=== PATIENT | female | born 1960 | race Hispanic/Latino ===

== ENCOUNTER 2016-10-04 04:59 | Observation (INO) | payer MEDICARE, OTHER ==
[2016-10-04 05:15] VITALS: TEMP 98.1; BMI 36.7
[2016-10-04] MEDS ORDERED: Sodium Chloride 0.9% 1,000 ML IV STA ×2 (05:28)
--- NOTE | 2016-10-04 05:40 | ED PDOC ---
Arrival/HPI - General Historian: Patient - History of Present Illness Time/Duration: 4-6 hours Symptom Onset: Sudden Symptom Course: Unchanged Quality: Other (n/a) Activities at Onset: Other (after eating.) Context: Home <SanamMadyson chow - Last Filed: 10/04/16 06:23> <Corinna Barroso - Last Filed: 10/04/16 06:37> <Robbie Bazzi - Last Filed: 10/04/16 11:15> - General Chief Complaint: GI Problem Time Seen by Provider: 10/04/16 05:11 - History of Present Illness Narrative History of Present Illness (Text): 10/04/16 05:40 Patient is a 56 y/o with extensive cardiac history including CABG, aortic valve replacement, s/p ICD, DM and htn, active tobacco use presenting with nausea and burning sensation in the lower aspect of the abdomen. Patient states the symptoms started yesterday around 6 pm right after eating a home made cheese burger. The entire family ate the food, she was the only one with the symptom. Patient states she took tums and 3 month old zofran with no relief. Patient denies vomiting, denies diarrhea. Denies abdominal pain, states the lower quadrant of the abdomen feels like a burning sensation, no pain. Denies cp or sob. States she has been coughing for weeks now, with whitish sputum. Patient denies fever, admits to chills. Admits to dizziness when she lies down. Denies illicit drug use, denies alcohol. (Madyson Farrell) Patient seen and evaluated with resident (AVR was aortic valve ring, not replacement) - here with heat sensation in abdomen with nausea. EKG is paced; CXR with no changes. Labs showing leukocytosis; awaiting CT a/p. Patient placed in ED Observation - case endorsed to Dr. Bazzi. (Corinna Barroso) Past Medical History - Provider Review Nursing Documentation Reviewed: Yes - Travel History Have you recently traveled outside [place] w/in the past 3 mons?: No - Infectious Disease Hx of Infectious Diseases: None - Tetanus Immunization Tetanus Immunization: Unknown - Cardiac Hx Congestive Heart Failure: Yes (04-08-13) Hx Hypertension: Yes Hx Mitral Valve Prolapse: Yes Hx Pacemaker: No - Pulmonary Hx Respiratory Disorders: Yes (PLEURAL EFFEUSION) - Neurological Hx Neurological Disorder: No - HEENT Hx HEENT Disorder: No - Renal Hx Renal Disorder: No (HYDRONEPHROSIS) - Endocrine/Metabolic Hx Endocrine Disorders: Yes Hx Diabetes Mellitus Type 1: Yes - Hematological/Oncological Hx Blood Disorders: No - Integumentary Hx Dermatological Disorder: No - Musculoskeletal/Rheumatological Hx Musculoskeletal Disorders: No Hx Falls: No - Gastrointestinal Hx Diverticulitis: Yes - Genitourinary/Gynecological Hx Genitourinary Disorders: Yes (C-SectionX1,TUBAL LIGATION) - Psychiatric Hx Anxiety: Yes Hx Depression: Yes Hx Substance Use: No - Surgical History Hx Coronary Artery Bypass Graft: Yes Hx Coronary Stent: Yes (1999) Hx Tubal Ligation: Yes - Anesthesia Hx Anesthesia: Yes Hx Anesthesia Reactions: No Hx Malignant Hyperthermia: No - Suicidal Assessment Feels Threatened In Home Enviroment: No <Madyson Farrell - Last Filed: 10/04/16 06:23> Family/Social History - Physician Review Nursing Documentation Reviewed: Yes Family/Social History: Hypertension, CAD/CT Smoking Status: Current Some Days Smoker Hx Alcohol Use: No Hx Substance Use: No Hx Substance Use Treatment: No <Madyson Farrell - Last Filed: 10/04/16 06:23> Allergies/Home Meds <Madyson Farrell - Last Filed: 10/04/16 06:23> <Corinna Barroso - Last Filed: 10/04/16 06:37> <Robbie Bazzi - Last Filed: 10/04/16 11:15> Allergies/Adverse Reactions: Allergies No Known Allergies Allergy (Verified 07/20/14 08:59) Home Medications: Home Meds Medication Instructions Recorded Confirmed Aspirin 81 mg PO DAILY 09/16/12 07/20/14 Pravastatin Sodium [Pravastatin] 20 mg PO QPM 09/16/12 07/20/14 Metoprolol Succinate [Toprol XL] 12.5 mg PO DAILY 11/30/12 07/20/14 Insulin Human NPH/Reg [HumuLIN 25 units SC BID 04/08/13 07/20/14 70/30 (NPH/Reg)] Cefuroxime [Ceftin] 250 mg PO BID 07/20/14 07/20/14 Furosemide [Lasix] 20 mg PO QPM 07/20/14 07/20/14 Loratadine 10 mg PO DAILY 07/20/14 07/20/14 Losartan [Cozaar] 25 mg PO DAILY 07/20/14 07/20/14 Venlafaxine HCl [Venlafaxine] 37.5 mg PO DAILY 07/20/14 07/20/14 Review of Systems - Review of Systems Constitutional: Normal. absent: Fevers Eyes: Normal ENT: Normal Respiratory: Cough. absent: SOB, Sputum, Wheezing Cardiovascular: Normal. absent: Chest Pain, Palpitations, Syncope Gastrointestinal: Nausea. absent: Abdominal Pain, Constipation, Diarrhea, Vomiting, Appetite Changes Genitourinary Female: Normal. absent: Dysuria, Frequency Musculoskeletal: Normal Skin: Normal Neurological: Dizziness (when lying down.). absent: Headache, Focal Weakness Endocrine: Normal Hemo/Lymphatic: Normal Psychiatric: Normal <Madyson Farrell - Last Filed: 10/04/16 06:23> Physical Exam Temperature: Afebrile Blood Pressure: Normal Pulse: Regular Respiratory Rate: Normal Appearance: Positive for: Non-Toxic, Comfortable, Ill-Appearing Pain Distress: None Mental Status: Positive for: Alert and Oriented X 3 - Systems Exam Head: Present: Atraumatic, Normocephalic Pupils: Present: PERRL Extroacular Muscles: Present: EOMI Conjunctiva: Present: Normal Mouth: Present: Dry Neck: Present: Normal Range of Motion. No: JVD Respiratory/Chest: Present: Clear to Auscultation, Good Air Exchange. No: Respiratory Distress, Accessory Muscle Use, Wheezes, Rales, Rhonchi Cardiovascular: Present: Regular Rate and Rhythm, Normal S1, S2. No: Murmurs, Tachycardic, Bradycardic, Rub Abdomen: Present: Normal Bowel Sounds. No: Tenderness, Distention, Rebound, Guarding Back: Present: Normal Inspection Upper Extremity: Present: Normal Inspection. No: Cyanosis, Edema Lower Extremity: Present: Normal Inspection. No: Edema Neurological: Present: GCS=15, CN II-XII Intact, Speech Normal Skin: Present: Warm, Dry, Normal Color. No: Rashes Psychiatric: Present: Alert, Oriented x 3, Normal Insight, Normal Concentration <Madyson Farrell - Last Filed: 10/04/16 06:23> Medical Decision Making - EKG Interpretation Interpreted by ED Physician: Yes (Ventricular pacemaker, no acute ST/ T wave changes.) Type: 12 lead EKG <Madyson Farrell - Last Filed: 10/04/16 06:23> <Corinna Barroso - Last Filed: 10/04/16 06:37> - Lab Interpretations I have reviewed the lab results: Yes <Robbie Bazzi - Last Filed: 10/04/16 11:15> ED Course and Treatment: 10/04/16 05:57 Patient is a 56 y/o with extensive PMH presenting with nausea, burning sensation in the lower abdominal quadrant, and dizziness. Food poisoning versus gastritis, uti versus pancreatitis. r/o CAD, Plan: - CBC, CMP, LIPASE - EKG, chest x-ray - pro bnp - cardiac enzymes - UA - Pepcid, zofran, and NS bolus. - reevaluate and dispo. - Discussed with Dr Barroso. 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 requested admission for possible specialist eval and possible anticoagulation. pt refuses. 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 advises she is able to return to er with any worsening symptoms or concerns. understands risks of possible worsening, embolization. (Robbie Bazzi) - Lab Interpretations Lab Results: 10/04/16 05:40 10/04/16 05:40 Lab Results 10/04/16 05:40: Urine Color Yellow, Urine Appearance Sl cloudy, Urine pH 6.0, Ur Specific [place] 1.020, Urine Protein 100 H, Urine Glucose (UA) 100 H, Urine Ketones Negative, Urine Blood Moderate H, Urine Nitrate Negative, Urine Bilirubin Negative, Urine Urobilinogen 0.2, Ur Leukocyte Esterase Negative, Urine RBC 1 - 3, Urine WBC 0 - 2, Ur Epithelial Cells 1 - 3 10/04/16 05:40: WBC 12.5 H, RBC 4.81, Hgb 14.4, Hct 42.0, MCV 87.3, MCH 29.9, MCHC 34.3, RDW 13.0, Plt Count 255, MPV 10.4, Gran % 74.5 H, Lymph % (Auto) 19.8 L, [place] % (Auto) 5.0, Eos % (Auto) 0.4 L, Baso % (Auto) 0.3, Gran # 9.31 H , Lymph # 2.5, [place] # 0.6, Eos # 0.1, Baso # 0.04 10/04/16 05:40: Sodium 138, Potassium 4.4, Chloride 99, Carbon Dioxide 31, Anion Gap 12, BUN 22 H, Creatinine 0.9, Est GFR ( Amer) > 60, Est GFR ( Non-Af Amer) > 60, Random Glucose 220 H, Calcium 11.4 H, Total Bilirubin 0.4, AST 24, ALT 33, Alkaline Phosphatase 113, Lactate Dehydrogenase 609, Total Creatine Kinase 61, Troponin I 0.02, NT-Pro-B Natriuret Pep 831 H, Total Protein 7.2, Albumin 4.0, Globulin 3.3, Albumin/Globulin Ratio 1.2, Lipase 71 - RAD Interpretation Radiology Orders: 10/04/16 05:22 CHEST PORTABLE [RAD] Stat 10/04/16 06:07 ABD PELVIS PO & IV CONTRAST [CT] Stat - Medication Orders Current Medication Orders: Discontinued Medications Famotidine (Pepcid) 20 mg IVP STAT STA Stop: 10/04/16 05:29 Last Admin: 10/04/16 05:52 Dose: 20 mg Sodium Chloride (Sodium Chloride 0.9%) 1,000 mls @ 125 mls/hr IV .Q8H STA Stop: 10/04/16 13:27 Last Admin: 10/04/16 05:52 Dose: 125 mls/hr Iohexol (Omnipaque 240 (50 Ml)) Confirm Administered Dose 50 ml .ROUTE .STK-MED ONE Stop: 10/04/16 06:20 Last Admin: 10/04/16 08:52 Dose: 50 ml Iohexol (Omnipaque 350 100 Ml) Confirm Administered Dose 350 mg .ROUTE .STK-MED ONE Stop: 10/04/16 07:29 Meclizine HCl (Antivert) 12.5 mg PO STAT STA Stop: 10/04/16 05:33 Last Admin: 10/04/16 05:52 Dose: 12.5 mg Ondansetron HCl (Zofran Inj) 4 mg IVP STAT STA Stop: 10/04/16 05:29 Last Admin: 10/04/16 05:52 Dose: 4 mg Ondansetron HCl (Zofran Inj) 4 mg IVP ONCE ONE Stop: 10/04/16 07:16 Last Admin: 10/04/16 07:21 Dose: 4 mg Promethazine HCl (Phenergan Inj) 12.5 mg IVPB STAT STA Stop: 10/04/16 06:13 Last Admin: 10/04/16 06:42 Dose: 12.5 mg ED OBSERVATION <Madyson Farrell - Last Filed: 10/04/16 06:23> Date of observation admission: 10/04/16 Time of observation admission: 04:55 <Corinna Barroso - Last Filed: 10/04/16 06:37> Discharge: Yes <Robbie Bazzi - Last Filed: 10/04/16 11:15> - Observation admission statement Patient is being placed in observation because:: abdominal discomfort and persistent nausea (Corinna Barroso) - Goals of Observation Goals of observation are:: To rule out grave pathology, determine diagnosis and disposition, and improve symptoms. (Corinna Barroso) - Progress Note Progress Note: 10/04/16 06:15 Patient reports improvement in nausea but it is still there. Labs reveal WBC of 12.5K; will obtain CT a/p with po/iv contrast. (Corinna Barroso) 10/04/16 07:00 Case signed out to me from overnight by Dr. Barroso, pending imaging, reevaluation and disposition. 10/04/16 08:59 Abdomen/Pelvis CT: Creator : Juan Lyons MD COMPARISON: None. FINDINGS: LOWER THORAX: Unremarkable. LIVER: Unremarkable. No gross lesion or ductal dilatation. GALLBLADDER AND BILE DUCTS: Unremarkable. PANCREAS: Unremarkable. No gross lesion or ductal dilatation. SPLEEN: Unremarkable. ADRENALS: Unremarkable. No mass. KIDNEYS AND URETERS: Unremarkable. No hydronephrosis. No solid mass. VASCULATURE: Atherosclerotic changes of the aorta with irregular mural thrombus in the aorta.. No aortic aneurysm. BOWEL: Mild colonic diverticulosis.. No obstruction. No gross mural thickening. APPENDIX: Normal appendix. PERITONEUM: Unremarkable. No free fluid. No free air. LYMPH NODES: Unremarkable. No enlarged lymph nodes. BLADDER: Unremarkable. REPRODUCTIVE: Unremarkable. BONES: No acute fracture. OTHER FINDINGS: None. IMPRESSION: Mild colonic diverticulosis.Atherosclerotic changes of the aorta with irregular mural thrombus in the aorta.. No aortic aneurysm. 10/04/16 09:04 On re-evaluation, the patient says she feels better. Patient was offered admission for mural thrombus and persistent nausea but patient is refusing. She states she wants to go home. Leaving Against Medical Advice (AMA): The patient is choosing to leave against medical advice. I have personally explained to the patient that choosing to do so may result in permanent bodily harm or . I have discussed at great length that without further evaluation and monitoring there may be unforeseen circumstances and/or deterioration causing permanent bodily harm or as a result of their choice. The patient is alert, oriented, and shows the mental capacity to make clear decisions regarding the patients health care at this time. The patient continues to wish to leave against medical advice. The patient has been advised that they should return to the emergency room immediately if they change their mind at any time, or if their condition begins to change or worsen in any way. (Robbie Bazzi) <Madyson Farrell - Last Filed: 10/04/16 06:23> <Corinna Barroso - Last Filed: 10/04/16 06:37> - Scribe Statement The provider has reviewed the documentation as recorded by the Scribe <Robbie Bazzi - Last Filed: 10/04/16 11:15> - Scribe Statement Raffi Witt Provider Scribe Attestation: All medical record entries made by the Scribe were at my direction and personally dictated by me. I have reviewed the chart and agree that the record accurately reflects my personal performance of the history, physical exam, medical decision making, and the department course for this patient. I have also personally directed, reviewed, and agree with the discharge instructions and disposition. (Robbie Bazzi) Disposition/Present on Arrival - Present on Arrival Any Indicators Present on Arrival: Yes History of DVT/PE: No History of Uncontrolled Diabetes: Yes Urinary Catheter: No History of Decub. Ulcer: No History Surgical Site Infection Following: None - Disposition Have Diagnosis and Disposition been Completed?: No Disposition Time: 04:55 <Madyson Farrell - Last Filed: 10/04/16 06:23> <Corinna Barroso - Last Filed: 10/04/16 06:37> - Present on Arrival Any Indicators Present on Arrival: No History of DVT/PE: No History of Uncontrolled Diabetes: No Urinary Catheter: No History of Decub. Ulcer: No - Disposition Have Diagnosis and Disposition been Completed?: Yes Disposition Time: 04:55 <Robbie Bazzi - Last Filed: 10/04/16 11:15> - Disposition Diagnosis: Abdominal discomfort, Nausea Disposition: HOME/ ROUTINE Condition: STABLE
[2016-10-04 05:48] LABS: ADD MANUAL DIFF? NO
[2016-10-04 05:59] LABS: BASO # 0.04 K/mm3 (0.0-2.0); BASO % 0.3 % (0.0-3.0); EOS # 0.1 (0.0-0.7); EOS % 0.4 % (1.5-5.0); GRAN # 9.31 (1.4-6.5); GRAN % 74.5 % (50.0-68.0); LYMPH # 2.5 (1.2-3.4); LYMPH % 19.8 % (22.0-35.0); MEAN CELL VOLUME 87.3 fL (80.0-105.0); MEAN CORPUSCULAR HEMOGLOBIN 29.9 pg (25.0-35.0); MEAN CORPUSCULAR HGB CONC 34.3 g/dl (31.0-37.0); MEAN PLATELET VOLUME 10.4 fl (7.0-11.0); MONO # 0.6 (0.1-0.6); PLATELET COUNT 255 10^3/uL (120.0-450.0); WHITE BLOOD COUNT 12.5 10^3/ul (4.5-11.0)
[2016-10-04 06:00] LABS: ALB/GLOB RATIO 1.2 (1.1-1.8); ALKALINE PHOSPHATASE 113 U/L (38-133); ALT/SGPT 33 U/L (7-56); AST/SGOT 24 U/L (15-39); BILIRUBIN,TOTAL 0.4 mg/dL (0.2-1.3); BLOOD UREA NITROGEN 22 mg/dL (7-21); CALCIUM 11.4 mg/dL (8.4-10.5); CARBON DIOXIDE 31 mmol/L (21-33); CHLORIDE 99 mmol/L (98-107); GFR AFRICAN-AMERICAN > 60; GLUCOSE,RANDOM 220 mg/dL (70-110); LIPASE 71 U/L (23-300); POTASSIUM 4.4 mmol/L (3.6-5.0); SODIUM 138 mmol/L (132-148); TOTAL PROTEIN 7.2 g/dL (5.8-8.3); URINE BILIRUBIN NEGATIVE (NEGATIVE); URINE BLOOD MODERATE (NEGATIVE); URINE GLUCOSE (UA) 100 mg/dL (NEGATIVE); URINE KETONE NEGATIVE (NEGATIVE); URINE LEUKOCYTE ESTERASE NEGATIVE Leu/uL (NEGATIVE); URINE PROTEIN 100 mg/dL (<30 mg/dL); URINE UROBILINOGEN 0.2 E.U./dL (<1 E.U./dL)
[2016-10-04 06:10] LABS: URINE APPEARANCE SL CLOUDY (CLEAR); URINE COLOR YELLOW (YELLOW)
[2016-10-04 06:11] LABS: TROPONIN I 0.02 ng/mL
[2016-10-04 06:12] LABS: URINE WBC 0 - 2 /hpf (0-6)
[2016-10-04] MEDS ORDERED: Iohexol 240 (50 ml) ONE (06:19)
[2016-10-04] MEDS ORDERED: Iohexol 350 MG/100 ML VIAL ONE (07:28)
--- NOTE | 2016-10-04 08:55 | CT ---
PROCEDURE: CT Abdomen and Pelvis with contrast HISTORY: abd pain, nausea COMPARISON: None. TECHNIQUE: Contrast dose: 100 cc of Omnipaque 300 Radiation dose: Total exam DLP = 1201 mGy-cm. This CT exam was performed using one or more of the following dose reduction techniques: Automated exposure control, adjustment of the mA and/or kV according to patient size, and/or use of iterative reconstruction technique. FINDINGS: LOWER THORAX: Unremarkable. LIVER: Unremarkable. No gross lesion or ductal dilatation. GALLBLADDER AND BILE DUCTS: Unremarkable. PANCREAS: Unremarkable. No gross lesion or ductal dilatation. SPLEEN: Unremarkable. ADRENALS: Unremarkable. No mass. KIDNEYS AND URETERS: Unremarkable. No hydronephrosis. No solid mass. VASCULATURE: Atherosclerotic changes of the aorta with irregular mural thrombus in the aorta.. No aortic aneurysm. BOWEL: Mild colonic diverticulosis.. No obstruction. No gross mural thickening. APPENDIX: Normal appendix. PERITONEUM: Unremarkable. No free fluid. No free air. LYMPH NODES: Unremarkable. No enlarged lymph nodes. BLADDER: Unremarkable. REPRODUCTIVE: Unremarkable. BONES: No acute fracture. OTHER FINDINGS: None. IMPRESSION: Mild colonic diverticulosis.Atherosclerotic changes of the aorta with irregular mural thrombus in the aorta.. No aortic aneurysm.
--- NOTE | 2016-10-04 09:10 | RAD ---
HISTORY: nausea COMPARISON: 07/20/2014 FINDINGS: LUNGS: No active pulmonary disease. PLEURA: No significant pleural effusion identified, no pneumothorax apparent. CARDIOVASCULAR: Normal. OSSEOUS STRUCTURES: Sternal wires VISUALIZED UPPER ABDOMEN: Normal. OTHER FINDINGS: Dual lead pacemaker IMPRESSION: No active disease.
[2016-10-04 10:02] VITALS: BP 147/68; PULSE 84; RESP 17; O2SAT 96
--- NOTE | 2016-10-05 16:15 | CARD ---
APPROVED REPORT EKG Measurement Heart [id number] <Conclusion> [place] sensed, ventricular paced rhythm
== END 2016-10-04 09:03 | disposition home or self-care (01) ==
LOC: ED 04:59 → EROBSV 06:39
PROVIDERS: ADMIT Emergency Medicine; ATTEND Emergency Medicine
DX: R10.9 Unspecified abdominal pain (principal); R11.0 Nausea; I10 Essential (primary) hypertension; Z95.1 Presence of aortocoronary bypass graft; Z95.2 Presence of prosthetic heart valve; Z72.0 Tobacco use
CPT/HCPCS: 71010; 74177; 80053; 81001; 82550; 83615; 83690; 83880; 84484; 85025; 93005; 96374; 96375; 99285; G0378; J2405; J2550; J7040; Q9966; Q9967

== ENCOUNTER 2017-01-17 03:55 | Inpatient (IN) | payer MEDICARE, OTHER ==
[2017-01-17 04:03] VITALS: BMI 35.0
[2017-01-17] MEDS ORDERED: Albuterol-Ipratrop 3 mg / 0.5 (3 ml) UD ONE (04:20)
--- NOTE | 2017-01-17 04:33 | ED PDOC ---
Arrival/HPI - History of Present Illness Time/Duration: 1-3 hours Symptom Onset: Sudden Symptom Course: Unchanged Quality: Tightness Severity Level: Moderate Activities at Onset: Rest Context: Home - General Chief Complaint: Shortness Of Breath Time Seen by Provider: 01/17/17 04:16 - History of Present Illness Narrative History of Present Illness (Text): 01/17/17 04:30 56yo F PMH VA s/p CABG and AICD, DM2 (on insulin) who presents with shortness of breath that started earlier tonight after "over-dosing on albuterol." pt states that she began having cold-symptoms (post-nasal drip) on Friday and when she wasn't improving went to Dr. Andrew who prescribed her prednisone, levaquin and albuterol. pt states that the levaquin and prednisone gave her n/v and so she stopped taking them. Pt wasn't feeling better by so she went to [facility]. Prior to presentation, pt states that she took two large inhaled breaths of albuterol and then states that her lungs closed up and she became short of breath. pt states she had similar episodes before when she used to get panic attacks but denies any recent ones. Per daughter, there is a sick child at home (URI) and everybody at home is sick with a cold. Pt is also a smoker and states she smokes 1/[address] Andrew. (JAYDEN HANCOCK) Past Medical History - Provider Review Nursing Documentation Reviewed: Yes - Past History Past History: No Previous - Infectious Disease Hx of Infectious Diseases: None - Tetanus Immunization Tetanus Immunization: Unknown - Past Medical History Past Medical History: Non-Contributing - Cardiac Hx Congestive Heart Failure: Yes (04-08-13) Hx Hypertension: Yes Hx Mitral Valve Prolapse: Yes Hx Pacemaker: Yes (2014) - Pulmonary Hx Asthma: Yes Hx Bronchitis: Yes - Neurological Hx Neurological Disorder: No - HEENT Hx HEENT Disorder: No - Renal Hx Renal Disorder: No (HYDRONEPHROSIS) - Endocrine/Metabolic Hx Endocrine Disorders: Yes Hx Diabetes Mellitus Type 2: Yes - Hematological/Oncological Hx Blood Disorders: No - Integumentary Hx Dermatological Disorder: No - Musculoskeletal/Rheumatological Hx Musculoskeletal Disorders: No Hx Falls: No - Gastrointestinal Hx Diverticulitis: Yes - Genitourinary/Gynecological Hx Genitourinary Disorders: Yes (C-SectionX1,TUBAL LIGATION) - Psychiatric Hx Anxiety: Yes Hx Depression: Yes Hx Substance Use: No - Surgical History Hx Coronary Artery Bypass Graft: Yes (x5 2012) Hx Coronary Stent: Yes (1999) - Anesthesia Hx Anesthesia: Yes Hx Anesthesia Reactions: No Hx Malignant Hyperthermia: No - Suicidal Assessment Feels Threatened In Home Enviroment: No Family/Social History - Physician Review Nursing Documentation Reviewed: Yes Family/Social History: No Known Family HX Smoking Status: Heavy Smoker > 10 Cigarettes Daily Hx Alcohol Use: No Hx Substance Use: No Hx Substance Use Treatment: No Allergies/Home Meds Allergies/Adverse Reactions: Allergies losartan Adverse Reaction (Verified 01/17/17 04:09) ITCHING Home Medications: Home Meds Medication Instructions Recorded Confirmed Metoprolol Succinate [Toprol XL] 12.5 mg PO DAILY 11/30/12 01/17/17 Insulin Human NPH/Reg [HumuLIN 25 units SC TID 04/08/13 01/17/17 70/30 (NPH/Reg)] Aspirin [Aspirin Chewable] 81 mg PO DAILY 01/16/17 01/17/17 Atorvastatin [Lipitor] 80 mg PO DAILY 01/16/17 01/17/17 Cholecalciferol [Vitamin D 1000 IU] 1 tab PO DAILY 01/16/17 01/17/17 Clopidogrel [Plavix] 75 mg PO DAILY 01/16/17 01/17/17 Levofloxacin [Levaquin] 500 mg PO DAILY 01/17/17 01/17/17 Methylprednisolone [Medrol Dosepak] 4 mg PO DAILY 01/17/17 01/17/17 Promethazine DM [Phenergan DM 5 ml PO TID 01/17/17 01/17/17 Syrup] Review of Systems - Physician Review All systems were reviewed & negative as marked: Yes - Review of Systems Constitutional: Normal. absent: Fevers, Night Sweats ENT: Normal, Other (post-nasal drip). absent: Sore Throat, Rhinorrhea, Sinus Congestion Respiratory: SOB, Cough, Wheezing Cardiovascular: absent: Chest Pain, Palpitations, Edema, Calf Pain Gastrointestinal: absent: Abdominal Pain Neurological: absent: Headache, Dizziness Physical Exam Vital Signs Reviewed: Yes Appearance: Positive for: Non-Toxic Pain Distress: None Mental Status: Positive for: Alert and Oriented X 3 - Systems Exam Head: Present: Atraumatic, Normocephalic Pupils: Present: PERRL Extroacular Muscles: Present: EOMI Conjunctiva: Present: Normal Mouth: Present: Moist Mucous Membranes. No: Drooling Pharnyx: Present: Normal. No: ERYTHEMA, EXUDATE, TONSILS ENLARGED, Muffled/ Hoarse Voice Nose (External): Present: Atraumatic Nose (Internal): Present: No Active Bleeding, Moist Neck: Present: Normal Range of Motion. No: Lymphadenopathy Respiratory/Chest: Present: Wheezes, Tachypneic Cardiovascular: Present: Regular Rate and Rhythm, Normal S1, S2 Abdomen: Present: Normal Bowel Sounds. No: Tenderness, Distention Upper Extremity: Present: Normal Inspection, Normal ROM Lower Extremity: Present: Normal Inspection. No: Edema Neurological: Present: CN II-XII Intact, Speech Normal Skin: Present: Warm, Dry Psychiatric: Present: Alert, Oriented x 3 Vital Signs Temp Pulse Resp BP Pulse Ox 01/17/17 06:08 95 H 19 145/66 97 01/17/17 04:22 98.0 F 01/17/17 04:15 27 H 99 01/17/17 04:03 90 24 157/81 H 97 01/17/17 04:02 90 25 H 98 Medical Decision Making ED Course and Treatment: Patient seen and examined with resident. Came up with treatment and disposition plan with resident. (Jason Guadalupe) 01/17/17 04:59 Impression: 56yo F presenting with shortness of breath likely 2/2 bronchitis complicated by reactive airway disease Plan: - Reassess and disposition - CXR - EKG - Labs - Duonebs - Solu-medrol - Rocephin - Zosyn - magnesium Progress Notes: EKG: Ordered, reviewed, and independently interpreted the EKG. Rate : 84 BPM Rhythm : NSR with occasional PVC's Interpretation : Septal infarct, unchanged from prior exam Comparison : No previous EKG for comparison 01/17/17 06:14 Lasix and nitro ordered for pt, wheezing improving Dr. Andrew was contacted and she accepts the pt onto her service 01/17/17 06:16 01/17/17 06:20 Pt re-evaluated and is breathing better with less cough and less wheezing. continue with outlined management (KARISSA,JAYDEN) - Lab Interpretations Lab Results: 01/17/17 04:20 01/17/17 04:20 Lab Results 01/17/17 04:20: Sodium 137, Potassium 3.8, Chloride 95 L, Carbon Dioxide 32, Anion Gap 14, BUN 26 H, Creatinine 0.9, Est GFR ( Amer) > 60, Est GFR ( Non-Af Amer) > 60, Random Glucose 174 H, Calcium 8.7, Total Bilirubin 0.4, AST 31, ALT 27, Alkaline Phosphatase 118, Total Creatine Kinase 108, Troponin I 0.03 D, NT-Pro-B Natriuret Pep 1120 H, Total Protein 7.1, Albumin 4.0, Globulin 3.1, Albumin/Globulin Ratio 1.3 01/17/17 04:20: PT 10.9, INR 1.01, APTT 25.8 01/17/17 04:20: WBC 15.2 H D, RBC 4.62, Hgb 13.5, Hct 39.6, MCV 85.7, MCH 29.2, MCHC 34.1, RDW 12.9, Plt Count 259, MPV 10.4, Gran % 64.3, Lymph % (Auto) 25.5, [place] % (Auto) 9.1 H, Eos % (Auto) 0.9 L, Baso % (Auto) 0.2, Gran # 9.80 H, Lymph # 3.9 H, [place] # 1.4 H, Eos # 0.1, Baso # 0.03 - RAD Interpretation Radiology Orders: 01/17/17 04:42 CHEST ONE VIEW [RAD] Stat - Medication Orders Current Medication Orders: Guaifenesin (Robitussin) 100 mg PO Q4H PRN PRN Reason: Cough Last Admin: 01/17/17 05:45 Dose: 100 mg Nitroglycerin (Nitrostat Sl Tab) 0.3 mg SL Q5M CHELLY Stop: 01/17/17 06:26 Discontinued Medications Albuterol/Ipratropium (Duoneb 3 Mg/0.5 Mg (3 Ml) Ud) 3 ml IH STAT STA Stop: 01/17/17 04:55 Last Admin: 01/17/17 04:25 Dose: 3 ml Furosemide (Lasix) 40 mg IVP STAT STA Stop: 01/17/17 06:09 Magnesium Sulfate 2 gm/ Sodium (Chloride) 104 mls @ 102 mls/hr IVPB ONCE ONE Stop: 01/17/17 05:47 Last Admin: 01/17/17 05:05 Dose: 102 mls/hr eMAR Start Stop Document 01/17/17 05:05 RD (Rec: 01/17/17 05:06 RD [id number]) Intravenous Solution Start Date 01/17/17 Start Time 05:05 End Date 01/17/17 End time 06:05 Total Infusion Time 60 Ceftriaxone Sodium (Rocephin 1 Gram Ivpb) 1 gm in 100 mls @ 200 mls/hr IVPB STAT STA PRN Reason: Protocol Stop: 01/17/17 05:12 Piperacillin Sod/Tazobactam Sod (Zosyn 4.5 Gm In Ns 100ml) 4.5 gm in 100 mls @ 200 mls/hr IVPB STAT STA Stop: 01/17/17 05:24 Last Admin: 01/17/17 05:05 Dose: 200 mls/hr Comments: Verified administration of zosyn and mag sulfate with pharmacy. eMAR Start Stop Document 01/17/17 05:05 RD (Rec: 01/17/17 05:05 RD [id number]) Intravenous Solution Start Date 01/17/17 Start Time 05:05 End Date 01/17/17 End time 05:35 Total Infusion Time 30 Methylprednisolone (Solu-Medrol) 125 mg IVP STAT STA Stop: 01/17/17 04:55 Last Admin: 01/17/17 04:25 Dose: 125 mg IVP Administration Document 01/17/17 04:25 RD (Rec: 01/17/17 04:58 RD [id number]) Charges for Administration # of IVP Administrations 1 Oxymetazoline HCl (Afrin 0.05%) 0 ml NS STAT STA Stop: 01/17/17 05:36 Last Admin: 01/17/17 05:51 Dose: 4 spr Sodium Chloride ([place] Nasal [place]) 0 ml NS Q4H PRN PRN Reason: Nasal congestion Disposition/Present on Arrival - Present on Arrival Any Indicators Present on Arrival: No History of DVT/PE: No History of Uncontrolled Diabetes: No Urinary Catheter: No History of Decub. Ulcer: No History Surgical Site Infection Following: None - Disposition Have Diagnosis and Disposition been Completed?: Yes Disposition Time: 06:16 Patient Plan: Admission - Disposition Diagnosis: Bronchitis, Shortness of breath Disposition: HOSPITALIZED Patient Problems: Current Active Problems Problem Status Onset Bronchitis Acute Shortness of breath Acute Condition: STABLE Referrals: Ashish Andrew MD [Primary Care Provider] - Follow up with primary Forms: [employer] (Bulgarian)
[2017-01-17] MEDS ORDERED: Albuterol 0.083% Inhal Sol (2.5 mg/3 mL) UD IH STA (04:42)
[2017-01-17] MEDS ORDERED: cefTRIAXone 1 gm 1 GM/100 ML BAG IVPB STA (04:43)
[2017-01-17] MEDS ORDERED: Piperacillin/Tazobact 3.375 gm Inj IVPB ONE (04:43)
[2017-01-17] MEDS ORDERED: MethylPREDNISolone 40 mg Vial IVP STA (04:43)
[2017-01-17] MEDS ORDERED: Magnesium Sulfate 2 GM in Sodium Chloride 0.9% 100 ML IVPB ONE (04:46)
[2017-01-17] MEDS ORDERED: Albuterol-Ipratrop 3 mg / 0.5 (3 ml) UD IH STA (04:54)
[2017-01-17] MEDS ORDERED: Piperacill/Tazo 4.5gm in NS 100 ML IVPB STA (04:55)
[2017-01-17 05:15] LABS: BASO # 0.03 K/mm3 (0.0-2.0); BASO % 0.2 % (0.0-3.0); EOS # 0.1 (0.0-0.7); EOS % 0.9 % (1.5-5.0); GRAN # 9.8 (1.4-6.5); GRAN % 64.3 % (50.0-68.0); HEMATOCRIT 39.6 % (36.0-48.0); LYMPH # 3.9 (1.2-3.4); LYMPH % 25.5 % (22.0-35.0); MEAN CELL VOLUME 85.7 fl (80.0-105.0); MEAN CORPUSCULAR HEMOGLOBIN 29.2 pg (25.0-35.0); MEAN CORPUSCULAR HGB CONC 34.1 g/dl (31.0-37.0); MEAN PLATELET VOLUME 10.4 fl (7.0-11.0); MONO # 1.4 (0.1-0.6); MONO % 9.1 % (1.0-6.0); RED CELL DISTRIBUTION WIDTH 12.9 % (11.5-14.5); WHITE BLOOD COUNT 15.2 10^3/ul (4.5-11.0)
[2017-01-17 05:22] LABS: ALB/GLOB RATIO 1.3 (1.1-1.8); ALKALINE PHOSPHATASE 118 U/L (38-126); ALT/SGPT 27 U/L (7-56); AST/SGOT 31 U/L (14-36); BILIRUBIN,TOTAL 0.4 mg/dL (0.2-1.3); BLOOD UREA NITROGEN 26 mg/dL (7-21); CALCIUM 8.7 mg/dL (8.4-10.5); CARBON DIOXIDE 32 mmol/L (21-33); CHLORIDE 95 mmol/L (98-107); GFR AFRICAN-AMERICAN > 60; GLUCOSE,RANDOM 174 mg/dL (70-110); POTASSIUM 3.8 mmol/L (3.6-5.0); SODIUM 137 mmol/L (132-148); TOTAL PROTEIN 7.1 g/dL (5.8-8.3)
[2017-01-17 05:24] LABS: INR 1.01 (0.93-1.08); PARTIAL THROMBOPLASTIN TIME 25.8 Seconds (23.7-30.8)
[2017-01-17 05:34] LABS: TROPONIN I 0.03 ng/mL
[2017-01-17] MEDS ORDERED: Oxymetazoline 0.05% Nasal Spray (30 ml) NS STA (05:35)
[2017-01-17] MEDS: guaiFENesin 100 mg/5 ml Syrup UD PO PRN ×3 (05:45→21:25)
--- NOTE | 2017-01-17 08:12 | RAD ---
PROCEDURE: CHEST RADIOGRAPH, 1 VIEW HISTORY: Shortness of breath COMPARISON: 10/04/2016. FINDINGS: LUNGS: The lungs are well inflated and clear. PLEURA: No pneumothorax or pleural fluid seen. CARDIOVASCULAR: The heart is normal in size. Status post CABG. There is stable position of a left-sided AICD. OSSEOUS STRUCTURES: No significant abnormalities. VISUALIZED UPPER ABDOMEN: Normal. OTHER FINDINGS: None. IMPRESSION: No active pulmonary disease.
[2017-01-17] MEDS: Insulin Reg-HIGH-Coverage SC SCH ×4 (08:59→23:32)
[2017-01-17] MEDS: Azithromycin 500MG/NS 250ml 500 MG/250 ML BAG IVPB SCH (09:01)
[2017-01-17] MEDS: Metoprolol Succinate 25 mg XL Tab PO SCH (09:01)
[2017-01-17] MEDS: cefTRIAXone 1 gm 1 GM/100 ML BAG IVPB SCH (09:02)
--- NOTE | 2017-01-17 09:15 | CARD ---
APPROVED REPORT EKG Measurement Heart [id number] <Conclusion> V. Paced, A. Sensed rhythm One PVC No change
[2017-01-17] MEDS: Insulin Human NPH/Reg 70/30 Vial(3 ml) SC SCH ×2 (09:20→17:05)
[2017-01-17] MEDS: Fluticasone Nasal 50 mcg/Spray NS SCH (09:20)
[2017-01-17] MEDS: Promethazine DM 6.25 mg-15 mg/5 ml Syrup PO SCH ×3 (12:00→23:33)
[2017-01-17] MEDS ORDERED: Pneumococcal 23-Valent Vaccine IM ONE (13:28)
[2017-01-17] MEDS: Levalbuterol 0.63 MG/3 ML Inhal Soln UD IH SCH ×2 (13:30→19:50)
[2017-01-17] MEDS: MethylPREDNISolone 40 mg Vial IVP SCH ×2 (13:48→21:25)
[2017-01-18] MEDS: Levalbuterol 0.63 MG/3 ML Inhal Soln UD IH SCH ×4 (02:00→21:00)
--- NOTE | 2017-01-18 03:07 | HP ---
HISTORY OF PRESENT ILLNESS: The patient is 56 years old. She was seen earlier this week with cough, congestion, and wheezing. The patient is active smoker, so she was given Levaquin and Medrol Dosepak. She states she started to feel a little better, but then started to get worse. So, yesterday, she became increasingly short of breath, went to [facility], she was given nebulizer treatment with IV steroid with some relief and she was discharged. When she came home, she started to use her medication again and she developed acute shortness of breath again, so she came to emergency room for further evaluation. Denies any fever or chills. No history of hemoptysis. No hematemesis. No nausea or vomiting. No diarrhea. Does complain of generalized weakness. PAST MEDICAL HISTORY: She has significant past medical history of coronary artery disease, status post open heart surgery and valve replacement, insulin-dependent diabetes, hypertension, COPD, and anxiety disorder. ALLERGIES: SHE IS ALLERGIC TO [place]ART[place]. MEDICATIONS AT HOME: She is on promethazine, metoprolol 12.5 daily, Medrol Dosepak, Humulin 70/30, 25 units 3 times a day, Lasix 40 mg daily, Plavix 75 daily, Lipitor 80 mg daily, and aspirin 81 daily. SOCIAL HISTORY: She is , lives with her and 2 grown up daughter. REVIEW OF SYSTEMS: Significant for cough, congestion, and shortness of breath. PHYSICAL EXAMINATION: GENERAL: She is awake, alert, and communicative. VITAL SIGNS: She is afebrile, pulse 79, respirations 18, and blood pressure 143/60. HEART: S1 and S2 audible. LUNGS: Bilateral diffusely decreased breath sounds expiratory rhonchi. ABDOMEN: Soft and nontender. No rebound. No guarding. NEUROLOGIC: She is awake, alert, and communicative. LABORATORY DATA: WBC is 15, hemoglobin is 13, hematocrit is 39, and platelets 259. PT is 10.9 and INR is 1.01. Chemistry: Sodium 137, potassium 3.8, chloride 95, CO2 of 32, BUN 26, creatinine 0.9, and blood sugar of 302. LFTs are within normal limits. BNP is 1112. X-ray chest, no active pulmonary disease. She had MUGA scan done that shows large size inferolateral and lateral wall infarct with some joann-infarct ischemia and low normal left ventricular ejection fraction. ASSESSMENT: 1. Chronic obstructive pulmonary disease exacerbation. 2. Asthmatic bronchitis. 3. Coronary artery disease. 4. Hypertension. 5. Insulin-dependent diabetes. 6. Hyperlipidemia. PLAN: Currently, the patient is on aspirin 81 mg daily. She is getting Xopenex. She is getting nebulizer treatment. She is on Lasix. I will continue her on stains and Plavix. We will continue on antibiotics Zithromax and we will reevaluate the patient. Ashish Andrew MD
[2017-01-18 03:53] LABS: ALB/GLOB RATIO 1.3 (1.1-1.8); ALKALINE PHOSPHATASE 116 U/L (38-126); ALT/SGPT 43 U/L (7-56); AST/SGOT 33 U/L (14-36); BILIRUBIN,TOTAL 0.4 mg/dL (0.2-1.3); BLOOD UREA NITROGEN 30 mg/dL (7-21); CARBON DIOXIDE 32 mmol/L (21-33); CHLORIDE 96 mmol/L (98-107); GFR AFRICAN-AMERICAN > 60; MAGNESIUM 2.3 mg/dL (1.7-2.2); PHOSPHOROUS 3.6 mg/dL (2.5-4.5); POTASSIUM 5.5 mmol/L (3.6-5.0); SODIUM 135 mmol/L (132-148); TOTAL PROTEIN 6.8 g/dL (5.8-8.3)
[2017-01-18 04:04] LABS: TROPONIN I 0.03 ng/mL
[2017-01-18] MEDS ORDERED: Sod Polystyrene Sulf 15 gm/60 ml Oral Susp PO ONE (04:24)
[2017-01-18] MEDS ORDERED: Insulin Regular 1 UNITS/0.01 ML ML SC STA (04:31)
[2017-01-18 04:32] LABS: BASO # 0.01 K/mm3 (0.0-2.0); BASO % 0.1 % (0.0-3.0); GRAN # 13.11 (1.4-6.5); HEMATOCRIT 39.4 % (36.0-48.0); LYMPH # 1.7 (1.2-3.4); LYMPH % 11.2 % (22.0-35.0); MEAN CELL VOLUME 86.2 fl (80.0-105.0); MEAN CORPUSCULAR HEMOGLOBIN 29.3 pg (25.0-35.0); MEAN PLATELET VOLUME 10.4 fl (7.0-11.0); MONO # 0.7 (0.1-0.6); MONO % 4.7 % (1.0-6.0); RED CELL DISTRIBUTION WIDTH 12.9 % (11.5-14.5); WHITE BLOOD COUNT 15.6 10^3/ul (4.5-11.0)
[2017-01-18] MEDS: Promethazine DM 6.25 mg-15 mg/5 ml Syrup PO SCH ×2 (05:05→11:51)
[2017-01-18] MEDS: MethylPREDNISolone 40 mg Vial IVP SCH ×2 (05:06→21:45)
[2017-01-18] MEDS: Insulin Reg-HIGH-Coverage SC SCH ×3 (07:30→21:47)
--- NOTE | 2017-01-18 08:46 | CARD ---
APPROVED REPORT EKG Measurement Heart [id number] <Conclusion> V. Paced, A. Sensed rhythm No change
[2017-01-18] MEDS: cefTRIAXone 1 gm 1 GM/100 ML BAG IVPB SCH (09:23)
[2017-01-18] MEDS: Fluticasone Nasal 50 mcg/Spray NS SCH (09:23)
[2017-01-18] MEDS: Azithromycin 500MG/NS 250ml 500 MG/250 ML BAG IVPB SCH (09:23)
[2017-01-18] MEDS: Insulin Human NPH/Reg 70/30 Vial(3 ml) SC SCH ×3 (09:25→18:08)
[2017-01-18] MEDS: Metoprolol Succinate 25 mg XL Tab PO SCH (09:33)
--- NOTE | 2017-01-18 09:39 | RAD ---
HISTORY: f/u COMPARISON: 01/17/2017 FINDINGS: LUNGS: No active pulmonary disease. PLEURA: No significant pleural effusion identified, no pneumothorax apparent. CARDIOVASCULAR: Normal heart size. AICD. No congestive change. OSSEOUS STRUCTURES: No significant abnormalities. VISUALIZED UPPER ABDOMEN: Normal. OTHER FINDINGS: None. IMPRESSION: No active disease.
[2017-01-18 10:54] LABS: GLUCOSE,RANDOM 385 mg/dL (70-110)
[2017-01-18] MEDS ORDERED: Insulin Regular 1 UNITS/0.01 ML ML SC ONE (11:29)
[2017-01-18] MEDS: Acetylcysteine 20% Inhal Soln (4ml) IH SCH ×3 (13:11→21:00)
[2017-01-18] MEDS ORDERED: Insulin Human NPH/Reg 70/30 Vial(3 ml) SC SCH (14:00)
--- NOTE | 2017-01-18 14:02 | PN ---
SUBJECTIVE: The patient is a 56 years old, seen and examined. She is doing a lot better, less cough, less shortness of breath. PHYSICAL EXAMINATION: VITAL SIGNS: She is afebrile, pulse 79, respirations 18, and blood pressure 140/70. LUNGS: Bilateral fair airflow, expiratory rhonchi. HEART: S1 and S2 audible. ABDOMEN: Soft, obese, nontender. No rebound. No guarding. NEUROLOGIC: The patient is awake and alert, communicative. EXTREMITIES: Bilateral legs, no edema. LABORATORY EXAM: WBC is 15.6, hemoglobin is 13, hematocrit is 39, and platelets 253. Chemistry: Sodium 135, potassium 5.5, chloride 98, CO2 of 32, BUN 30, creatinine 1.0, and blood sugar of 439. ASSESSMENT AND PLAN: 1. Chronic obstructive pulmonary disease exacerbation. 2. Hypertension. 3. Coronary artery disease. 4. Bronchospasm. 5. Asthmatic bronchitis. 6. Insulin-dependent diabetes. PLAN: The patient can be transferred to Med-Surg. We will continue her on aspirin, continue nebulizer treatment. I will adjust her insulin. Continue her on Rocephin and cut down her steroid. Encourage ambulation. If the patient remains stable, she can be switched to p.o. steroid and sent home in a.m. Ashish Andrew MD
[2017-01-18 16:43] VITALS: RESP 20
[2017-01-18] MEDS ORDERED: Insulin Detemir 100 units/ml Vial (Levemir) SC SCH (22:00)
[2017-01-19] MEDS: Promethazine DM 6.25 mg-15 mg/5 ml Syrup PO SCH ×2 (00:45→05:37)
[2017-01-19] MEDS ORDERED: Pantoprazole 40 mg EC Tab PO SCH (06:00)
--- NOTE | 2017-01-19 07:47 | CARD ---
APPROVED REPORT EXAM: Two-dimensional and M-mode echocardiogram with Doppler and color Doppler. Other Information Quality : PoorRhythm : INDICATION Dyspnea 2D DIMENSIONS Left Atrium (2D)4.4 (1.6-4.0cm)IVSd1.2 (0.7-1.1cm) LVDd5.0 (3.9-5.9cm)PWd1.1 (0.7-1.1cm) LVDs4.1 (2.5-4.0cm)FS (%) 17.1 % LVEF (%)35.0 (>50%) M-Mode DIMENSIONS Aortic Root2.30 (2.2-3.7cm)Aortic Cusp Exc.1.10 (1.5-2.0cm) Aortic Valve AoV Peak Jrovqcjb265.0cm/[place] Peak GR.9mmHg Mitral Valve MV E Mwpipiok766.0cm/sMV A Sjynpsso512.0cm/sMV RSB87sd E/A ratio1.3MVA (PHT)2.34cm2 TDI E/Lateral E'0.0E/Medial E'0.0 Tricuspid Valve TR Peak [id number]/sRAP [id number] Peak Gr.6mmHg [id number] LEFT VENTRICLE The left ventricle is normal size. There is normal left ventricular wall thickness. Left ventricle systolic function is moderately to severely impaired. The Ejection Fraction is 30-35%. There is moderate to severe global hypokinesis. RIGHT VENTRICLE The right ventricle is not well visualized. ATRIA The left atrium is mildly dilated. The right atrium size is normal. The interatrial septum is intact with no evidence for an atrial septal defect. AORTIC VALVE The aortic valve is moderately calcified. PULMONIC VALVE The pulmonic valve is not well visualized. GREAT VESSELS The aortic root is normal in size. PERICARDIAL EFFUSION There is no pericardial effusion. <Conclusion> Limited study done in ICU setting. The left ventricle is normal size. Left ventricle systolic function is moderately to severely impaired. The Ejection Fraction is 30-35%. There is moderate to severe global hypokinesis. The aortic valve is moderately calcified. Aortic sclerosis vs. mild . The MV leaflets appear thickened but open well. There is the appearance of a ramon annuloplasty vs MAC. The TV appears thickened but opens well. There is an echo dense structure associated with the septal leaflet. Can not R/O vegetation. Suggest clinical correlation. Hardeep repeat echo when patinet is out of the ICU or JUAN.
[2017-01-19 08:02] LABS: BASO # 0.01 K/mm3 (0.0-2.0); BASO % 0.1 % (0.0-3.0); GRAN # 9.84 (1.4-6.5); HEMATOCRIT 38.5 % (36.0-48.0); LYMPH # 2.9 (1.2-3.4); LYMPH % 21.8 % (22.0-35.0); MEAN CELL VOLUME 86.9 fl (80.0-105.0); MEAN CORPUSCULAR HEMOGLOBIN 28.9 pg (25.0-35.0); MEAN CORPUSCULAR HGB CONC 33.2 g/dl (31.0-37.0); MEAN PLATELET VOLUME 10.3 fl (7.0-11.0); MONO # 0.7 (0.1-0.6); MONO % 5.1 % (1.0-6.0); WHITE BLOOD COUNT 13.5 10^3/ul (4.5-11.0)
[2017-01-19] MEDS: Levalbuterol 0.63 MG/3 ML Inhal Soln UD IH SCH ×2 (08:07→13:30)
[2017-01-19] MEDS: Acetylcysteine 20% Inhal Soln (4ml) IH SCH ×2 (08:08→13:29)
[2017-01-19 08:19] LABS: ALB/GLOB RATIO 1.3 (1.1-1.8); ALKALINE PHOSPHATASE 95 U/L (38-126); ALT/SGPT 35 U/L (7-56); AST/SGOT 21 U/L (14-36); BILIRUBIN,TOTAL 0.3 mg/dL (0.2-1.3); BLOOD UREA NITROGEN 31 mg/dL (7-21); CALCIUM 8.6 mg/dL (8.4-10.5); CARBON DIOXIDE 35 mmol/L (21-33); CHLORIDE 99 mmol/L (98-107); GFR AFRICAN-AMERICAN > 60; GLUCOSE,RANDOM 189 mg/dL (70-110); SODIUM 139 mmol/L (132-148); TOTAL PROTEIN 6.2 g/dL (5.8-8.3)
[2017-01-19] MEDS: Insulin Reg-HIGH-Coverage SC SCH ×3 (08:35→12:14)
[2017-01-19] MEDS: Insulin Human NPH/Reg 70/30 Vial(3 ml) SC SCH ×2 (08:36→12:13)
[2017-01-19 09:18] VITALS: BP 161/87; PULSE 71; TEMP 97.9; O2SAT 96
[2017-01-19] MEDS: Azithromycin 500MG/NS 250ml 500 MG/250 ML BAG IVPB SCH (09:26)
[2017-01-19] MEDS: cefTRIAXone 1 gm 1 GM/100 ML BAG IVPB SCH (09:27)
[2017-01-19] MEDS: Metoprolol Succinate 25 mg XL Tab PO SCH (09:27)
[2017-01-19] MEDS: MethylPREDNISolone 40 mg Vial IVP SCH (09:28)
== END 2017-01-19 14:56 | disposition home or self-care (01) | DRG 192 ==
LOC: ED 03:55 → ERH 06:17 → CCU 08:01 → 3RSO 01-18 14:00
PROVIDERS: ADMIT Internal Medicine; ATTEND Internal Medicine
PROC: 3E0F7GC Introduction of Other Therapeutic Substance into Respiratory Tract, Via Natural or Artificial Opening (ICD-10-PCS; principal; 2017-01-17)
DX: J44.1 Chronic obstructive pulmonary disease with (acute) exacerbation (principal); I11.0 Hypertensive heart disease with heart failure; I50.9 Heart failure, unspecified; I25.10 Atherosclerotic heart disease of native coronary artery without angina pectoris; F17.210 Nicotine dependence, cigarettes, uncomplicated; E11.9 Type 2 diabetes mellitus without complications; E78.5 Hyperlipidemia, unspecified; F41.9 Anxiety disorder, unspecified; Z79.4 Long term (current) use of insulin; Z79.02 Long term (current) use of antithrombotics/antiplatelets; Z79.82 Long term (current) use of aspirin; Z95.1 Presence of aortocoronary bypass graft; Z95.5 Presence of coronary angioplasty implant and graft; Z95.2 Presence of prosthetic heart valve

== ENCOUNTER 2018-08-05 05:43 | Observation (INO) | payer MEDICARE, OTHER ==
[2018-08-05 05:43] VITALS: BMI 35.9
--- NOTE | 2018-08-05 06:14 | ED PDOC ---
Arrival/HPI - General Historian: Patient - History of Present Illness Narrative History of Present Illness (Text): 08/05/18 06:12 Trisha Henley is a 58 year old female with medical history of Cardiomyopathy, COPD, hypertension, Diabetes, and High cholesterol, and CAD stents placed in 2014, who presents to the emergency department complaining of burning left sided chest pain. Patient states she was home laying down when she noticed her heart "beating hard". Patient notes feeling nauseous, but denies any fever, chills, back pain, neck pain, abdominal pain, shortness of breath, or any other complaints. Time/Duration: Prior to Arrival Symptom Onset: Gradual Symptom Course: Unchanged Activities at Onset: Rest Context: Home <Nicholas Alegria - Last Filed: 08/05/18 06:20> <Angeline Robledo - Last Filed: 08/05/18 12:04> - General Chief Complaint: Chest Pain Past Medical History - Provider Review Nursing Documentation Reviewed: Yes - Past History Past History: No Previous - Infectious Disease Hx of Infectious Diseases: None - Tetanus Immunization Tetanus Immunization: Unknown - Past Medical History Past Medical History: Non-Contributing - Cardiac Hx Cardiac Disorders: Yes Hx Cardiac Arrhythmia: Yes Hx Congestive Heart Failure: Yes (04-08-13) Hx Hypertension: Yes Hx Mitral Valve Prolapse: Yes Hx Pacemaker: Yes (ICD) Hx Peripheral Edema: Yes - Pulmonary Hx Respiratory Disorders: Yes Hx Asthma: Yes Hx Bronchitis: Yes - Neurological Hx Neurological Disorder: No - HEENT Hx HEENT Disorder: No - Renal Hx Renal Disorder: No - Endocrine/Metabolic Hx Endocrine Disorders: Yes Hx Diabetes Mellitus Type 2: Yes - Hematological/Oncological Hx Blood Disorders: No - Integumentary Hx Dermatological Disorder: No - Musculoskeletal/Rheumatological Hx Musculoskeletal Disorders: No Hx Falls: No Hx Fractures: Yes (left arm) - Gastrointestinal Hx Gastrointestinal Disorders: Yes Hx Diverticulitis: Yes - Genitourinary/Gynecological Hx Genitourinary Disorders: No - Psychiatric Hx Psychophysiologic Disorder: Yes Hx Anxiety: Yes Hx Depression: Yes Hx Substance Use: No - Surgical History Hx Section: Yes Hx Coronary Artery Bypass Graft: Yes Hx Coronary Stent: Yes Hx Tubal Ligation: Yes - Anesthesia Hx Anesthesia: Yes Hx Anesthesia Reactions: No Hx Malignant Hyperthermia: No - Suicidal Assessment Feels Threatened In Home Enviroment: No <Nicholas Alegria - Last Filed: 08/05/18 06:20> Family/Social History - Physician Review Nursing Documentation Reviewed: Yes Family/Social History: Unknown Family HX Smoking Status: Never Smoked Hx Alcohol Use: No Hx Substance Use: No Hx Substance Use Treatment: No <Nicholas Alegria - Last Filed: 08/05/18 06:20> Allergies/Home Meds <Nicholas Alegria - Last Filed: 08/05/18 06:20> <Angeline Robledo - Last Filed: 08/05/18 12:04> Allergies/Adverse Reactions: Allergies No Known Allergies Allergy (Verified 08/05/18 11:45) Home Medications: Home Meds Medication Instructions Recorded Confirmed Atorvastatin [Lipitor] 80 mg PO HS 01/16/17 08/05/18 Cholecalciferol [Vitamin D 1000 IU] 1 tab PO DAILY 01/16/17 08/05/18 Clopidogrel [Plavix] 75 mg PO DAILY 01/16/17 08/05/18 Aspirin [Ecotrin] 81 mg PO DAILY 04/10/18 08/05/18 Metoprolol Tartrate [Lopressor] 12.5 mg PO DAILY 04/10/18 08/05/18 Spironolactone [Aldactone] 12.5 mg PO DAILY 04/10/18 08/05/18 Furosemide [Lasix] 40 mg PO DAILY 07/24/18 08/05/18 Ramipril [Altace] 1.25 mg PO DAILY 07/24/18 08/05/18 Allopurinol [Zyloprim] 100 mg PO DAILY 08/05/18 08/05/18 Insulin Aspart (Niacinamide) 9 unit SQ DAILY 08/05/18 08/05/18 [Fiasp 100 Unit/ml Vial] Insulin Glargine,Hum.rec.anlog 90 units SQ DAILY 08/05/18 08/05/18 [Toujeo Solostar] Ranolazine [Ranexa] 500 mg PO BID 08/05/18 08/05/18 Review of Systems - Physician Review All systems were reviewed & negative as marked: Yes - Review of Systems Constitutional: absent: Fatigue, Fevers Respiratory: absent: SOB, Cough, Wheezing Cardiovascular: Chest Pain Gastrointestinal: Nausea. absent: Abdominal Pain, Diarrhea, Vomiting Musculoskeletal: absent: Back Pain, Neck Pain Skin: absent: Rash Neurological: absent: Headache, Dizziness Psychiatric: absent: Anxiety, Depression <AldoNicholas jones - Last Filed: 08/05/18 06:20> Physical Exam Vital Signs Temp Pulse Resp BP Pulse Ox 08/05/18 06:05 97.5 F L 08/05/18 05:49 74 19 177/79 H 100 Temperature: Afebrile Blood Pressure: Hypertensive Pulse: Regular Respiratory Rate: Normal Appearance: Positive for: Well-Appearing, Non-Toxic, Comfortable Pain Distress: None Mental Status: Positive for: Alert and Oriented X 3 - Systems Exam Head: Present: Atraumatic, Normocephalic Pupils: Present: PERRL. No: Sluggish, Non-Reactive Extroacular Muscles: Present: EOMI Conjunctiva: Present: Normal Mouth: Present: Moist Mucous Membranes Neck: Present: Normal Range of Motion. No: Meningeal Signs, MIDLINE TENDERNESS, JVD Respiratory/Chest: Present: Clear to Auscultation, Good Air Exchange. No: Respiratory Distress, Accessory Muscle Use, Wheezes Cardiovascular: Present: Regular Rate and Rhythm, Normal S1, S2. No: Murmurs Abdomen: No: Tenderness, Distention, Peritoneal Signs Back: Present: Normal Inspection. No: CVA Tenderness, Midline Tenderness Upper Extremity: Present: Normal Inspection, Normal ROM. No: Cyanosis, Edema, Tenderness, Swelling Lower Extremity: Present: Normal Inspection, Normal ROM. No: Edema, Tenderness, Swelling Neurological: Present: GCS=15, Speech Normal Skin: Present: Warm, Dry, Normal Color. No: Rashes Psychiatric: Present: Alert, Oriented x 3, Normal Insight, Normal Concentration <Nicholas Alegria - Last Filed: 08/05/18 06:20> Vital Signs Temp Pulse Resp BP Pulse Ox 08/05/18 09:08 67 16 125/55 L 96 08/05/18 07:18 82 16 131/74 98 08/05/18 06:33 88 18 113/56 L 98 08/05/18 06:05 97.5 F L 08/05/18 05:49 74 19 177/79 H 100 <Angeline Robledo - Last Filed: 08/05/18 12:04> Medical Decision Making ED Course and Treatment: 08/05/18 06:14 Impression: 58 y/o female who presents to the emergency department complaining of burning left sided chest pain. Plan: -- EKG -- Labs -- Reassess and disposition Prior Visits: Notes and results from previous visits were reviewed. Progress Notes: - RAD Interpretation Radiology Orders: 08/05/18 05:53 CHEST PORTABLE [RAD] Stat - EKG Interpretation EKG Interpretation (Text): 08/05/18 05:51 EKG reviewed, shows: NSR at 70 bpm. Intermittent fusion complexes. No ST el evations. Prolonged QT intervals. Interpreted by ED Physician: Yes Type: 12 lead EKG - Medication Orders Current Medication Orders: Discontinued Medications Metoclopramide HCl (Reglan) 10 mg IVP STAT STA Stop: 08/05/18 06:05 Nitroglycerin (Nitrostat Sl Tab) 0.4 mg SL STAT STA Stop: 08/05/18 06:05 <Nicholas Alegria - Last Filed: 08/05/18 06:20> - Lab Interpretations Lab Results: PT 13.0 SECONDS (9.4-12.5) H 08/05/18 06:07 INR 1.15 08/05/18 06:07 APTT 37.9 Seconds (26.9-38.3) 08/05/18 06:07 Troponin I 0.02 ng/mL D 08/05/18 06:07 Total Bilirubin 0.4 mg/dL (0.2-1.3) 08/05/18 06:07 AST 26 U/L (14-36) 08/05/18 06:07 ALT 26 U/L (7-56) 08/05/18 06:07 Alkaline Phosphatase 127 U/L (38-126) H 08/05/18 06:07 Total Protein 7.4 g/dL (5.8-8.3) 08/05/18 06:07 Albumin 4.0 g/dL (3.0-4.8) 08/05/18 06:07 Globulin 3.4 gm/dL 08/05/18 06:07 Albumin/Globulin Ratio 1.2 (1.1-1.8) 08/05/18 06:07 Urine Color Yellow (YELLOW) 08/05/18 05:53 Urine Appearance Clear (CLEAR) 08/05/18 05:53 Urine pH 6.0 (4.7-8.0) 08/05/18 05:53 Ur Specific [place] 1.015 (1.005-1.035) 08/05/18 05:53 Urine Protein 30 mg/dL (<30 mg/dL) H 08/05/18 05:53 Urine Glucose (UA) 100 mg/dL (NEGATIVE) H 08/05/18 05:53 Urine Ketones Negative mg/dL (NEGATIVE) 08/05/18 05:53 Urine Blood Small (NEGATIVE) H 08/05/18 05:53 Urine Nitrate Negative (NEGATIVE) 08/05/18 05:53 Urine Bilirubin Negative (NEGATIVE) 08/05/18 05:53 Urine Urobilinogen 0.2 E.U./dL (<1 E.U./dL) 08/05/18 05:53 Ur Leukocyte Esterase Negative Eric/uL (NEGATIVE) 08/05/18 05:53 Urine RBC 5 - 10 /hpf (0-2) H 08/05/18 05:53 Urine WBC 0 - 2 /hpf (0-6) 08/05/18 05:53 Ur Epithelial Cells 6 - 8 /hpf (0-5) H 08/05/18 05:53 Amorphous Sediment Few /hpf (NONE) 08/05/18 05:53 Urine Bacteria Many /hpf (NONE) 08/05/18 05:53 - RAD Interpretation Radiology Orders: 08/05/18 05:53 CHEST PORTABLE [RAD] Stat 08/05/18 06:55 ABD & PELVIS W/O PO OR IV CONT [CT] Stat - Medication Orders Current Medication Orders: Discontinued Medications Al Hydrox/Mg Hydrox/Simethicone (Maalox Plus 30 Ml) 30 ml PO STAT STA Stop: 08/05/18 06:42 Last Admin: 08/05/18 07:11 Dose: 30 ml Belladonna/Phenobarbital ( Elixir) 5 ml PO STAT STA Stop: 08/05/18 06:42 Last Admin: 08/05/18 07:11 Dose: 5 ml Famotidine (Pepcid) 20 mg IVP STAT STA Stop: 08/05/18 06:42 Last Admin: 08/05/18 06:57 Dose: 20 mg IVP Administration Document 08/05/18 06:57 IT (Rec: 08/05/18 06:57 IT [id number] Charges for Administration # of IVP Administrations 1 Sodium Chloride (Sodium Chloride 0.9%) 1,000 mls @ 999 mls/hr IV .Q1H1M STA Stop: 08/05/18 07:54 Last Admin: 08/05/18 07:00 Dose: 999 mls/hr eMAR Start Stop Document 08/05/18 07:00 IT (Rec: 08/05/18 07:00 IT [id number] Intravenous Solution Start Date 08/05/18 Start Time 07:00 Metoclopramide HCl (Reglan) 10 mg IVP STAT STA Stop: 08/05/18 06:05 Last Admin: 08/05/18 06:18 Dose: 10 mg IVP Administration Document 08/05/18 06:18 IT (Rec: 08/05/18 06:18 IT [id number] Charges for Administration # of IVP Administrations 1 Nitroglycerin (Nitrostat Sl Tab) 0.4 mg SL STAT STA Stop: 08/05/18 06:05 Last Admin: 08/05/18 06:18 Dose: 0.4 mg <Angeline Robledo - Last Filed: 08/05/18 12:04> - Scribe Statement The provider has reviewed the documentation as recorded by the Scribe Edna Arroyo All medical record entries made by the Scribe were at my direction and personally dictated by me. I have reviewed the chart and agree that the record accurately reflects my personal performance of the history, physical exam, medi ricardo decision making, and the department course for this patient. I have also personally directed, reviewed, and agree with the discharge instructions and disposition. <Nicholas Alegria - Last Filed: 08/05/18 06:20> Disposition/Present on Arrival - Present on Arrival History of DVT/PE: No History of Uncontrolled Diabetes: No Urinary Catheter: No History of Decub. Ulcer: No History Surgical Site Infection Following: None <Nicholas Alegria - Last Filed: 08/05/18 06:20> <Angeline Robledo - Andrew Filed: 08/05/18 12:04> - Disposition Diagnosis: Chest pain, Abdominal discomfort Disposition: HOSPITALIZED Patient Problems: Current Active Problems Problem Status Onset Abdominal discomfort Acute Chest pain Acute Addendum Addendum: 08/05/18 12:04 Please see my documentation for this patient. This document belongs to Dr. Alegria. <Angeline Robledo Filed: 08/05/18 12:04>
[2018-08-05 06:33] LABS: BASO # 0.05 K/mm3 (0.0-2.0); BASO % 0.4 % (0.0-3.0); EOS # 0.5 (0.0-0.7); EOS % 4.1 % (1.5-5.0); HEMOGLOBIN 12.5 g/dL (12.0-16.0); LYMPH # 3.6 (1.2-3.4); LYMPH % 29.8 % (22.0-35.0); MEAN CELL VOLUME 86.4 fl (80.0-105.0); MEAN CORPUSCULAR HEMOGLOBIN 28.4 pg (25.0-35.0); MEAN CORPUSCULAR HGB CONC 32.9 g/dl (31.0-37.0); MEAN PLATELET VOLUME 10.4 fl (7.0-11.0); MONO # 0.8 (0.1-0.6); MONO % 6.4 % (1.0-6.0); RBC 4.4 10^6/uL (3.5-6.1); RED CELL DISTRIBUTION WIDTH 13.9 % (11.5-14.5)
[2018-08-05 06:37] LABS: INR 1.15; PARTIAL THROMBOPLASTIN TIME 37.9 Seconds (26.9-38.3)
[2018-08-05 06:41] LABS: ALB/GLOB RATIO 1.2 (1.1-1.8); CALCIUM 9.5 mg/dL (8.4-10.5)
[2018-08-05] MEDS ORDERED: Alum-Mag Hydrox-Simethicone Susp (30 mL) PO STA (06:41)
[2018-08-05] MEDS ORDERED: Atrop/Hyosc/Scopal/PB Elixir (120 ml) PO STA (06:41)
[2018-08-05 06:52] LABS: TROPONIN I 0.02 ng/mL
[2018-08-05] MEDS ORDERED: Sodium Chloride 0.9% 1,000 ML IV STA (06:54)
[2018-08-05 07:46] LABS: URINE BILIRUBIN NEGATIVE (NEGATIVE); URINE BLOOD SMALL (NEGATIVE); URINE GLUCOSE (UA) 100 mg/dL (NEGATIVE); URINE LEUKOCYTE ESTERASE NEGATIVE Leu/uL (NEGATIVE); URINE PROTEIN 30 mg/dL (<30 mg/dL); URINE UROBILINOGEN 0.2 E.U./dL (<1 E.U./dL)
[2018-08-05 07:48] LABS: URINE APPEARANCE CLEAR (CLEAR); URINE COLOR YELLOW (YELLOW)
[2018-08-05 07:53] LABS: URINE BACTERIA MANY /hpf; URINE WBC 0 - 2 /hpf (0-6)
[2018-08-05 07:54] LABS: URINE AMORPHOUS SEDIMENT FEW /hpf
--- NOTE | 2018-08-05 08:55 | CT ---
Date of service: 08/05/2018 PROCEDURE: CT Abdomen and Pelvis without intravenous contrast HISTORY: abdominal pain COMPARISON: None. TECHNIQUE: Without contrast.. Contrast dose: Radiation dose: Total exam DLP = 1015.08 mGy-cm. This CT exam was performed using one or more of the following dose reduction techniques: Automated exposure control, adjustment of the mA and/or kV according to patient size, and/or use of iterative reconstruction technique. FINDINGS: LOWER THORAX: Unremarkable. LIVER: Unremarkable. No gross lesion or ductal dilatation. GALLBLADDER AND BILE DUCTS: Unremarkable. PANCREAS: Unremarkable. No gross lesion or ductal dilatation. SPLEEN: Unremarkable. ADRENALS: Unremarkable. No mass. KIDNEYS AND URETERS: Unremarkable. No hydronephrosis. No solid mass. VASCULATURE: Unremarkable. No aortic aneurysm. No aortic atherosclerotic calcification or mural plaque present. BOWEL: Unremarkable. No obstruction. No gross mural thickening. Moderate constipation APPENDIX: Unremarkable. Normal appendix. PERITONEUM: Unremarkable. No free fluid. No free air. LYMPH NODES: Unremarkable. No enlarged lymph nodes. BLADDER: Unremarkable. REPRODUCTIVE: Unremarkable. BONES: No acute fracture. OTHER FINDINGS: None. IMPRESSION: No acute intra-abdominal findings. Moderate constipation
--- NOTE | 2018-08-05 09:26 | RAD ---
Date of service: 08/05/2018 HISTORY: chest pain COMPARISON: 01/18/2017 TECHNIQUE: 1 view obtained. FINDINGS: LUNGS: No active pulmonary disease. PLEURA: No significant pleural effusion identified, no pneumothorax apparent. CARDIOVASCULAR: No aortic atherosclerotic calcification present. Normal cardiac size. No pulmonary vascular congestion. OSSEOUS STRUCTURES: No significant abnormalities. VISUALIZED UPPER ABDOMEN: Normal. OTHER FINDINGS: Dual lead pacemaker IMPRESSION: No active disease.
--- NOTE | 2018-08-05 09:36 | ED PDOC ---
Physical Exam Vital Signs Reviewed: Yes Vital Signs Temp Pulse Resp BP Pulse Ox 08/05/18 09:08 67 16 125/55 L 96 08/05/18 07:18 82 16 131/74 98 08/05/18 06:33 88 18 113/56 L 98 08/05/18 06:05 97.5 F L 08/05/18 05:49 74 19 177/79 H 100 Temperature: Afebrile Blood Pressure: Hypertensive Pulse: Regular Respiratory Rate: Normal Appearance: Positive for: Well-Appearing, Non-Toxic, Comfortable Pain Distress: None Mental Status: Positive for: Alert and Oriented X 3 Medical Decision Making ED Course and Treatment: 08/05/18 07:00 Case endorsed to me by Dr. Alegria. CT abd/pelvis and dispo pending. 08/05/18 09:15 Patient is a 58 year old F who presented this morning complaining of burning left sided chest pain. Patient reports no active chest discomfort but recent chest pain felt 'pressured and a burning sensation." Patient was admitted here on 07/24/2018 - 07/28/2018, discharged with NSTEMI, COPD and SVT. 08/05/18 09:16 CT Abdomen and Pelvis without intravenous contrast No acute intra-abdominal findings. Moderate constipation 08/05/18 09:[address] d/w patient. 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 Vargas for his opinion. Call placed to Dr. Vargas 08/05/18 09:[address] to [address] Vargas cell phone and office multiple times but failed to reach. Patient reports intermittent feeling described as "funny feeling" in her chest and now accepts to be admitted. 08/05/18 09:[address] Amaya who accepts patient to her service, requests full admission given patient's chest pain and multiple risk factors. Dr. Amaya made aware that I was unable to contact Dr. Vargas; she requests Dr. Hernandez, bleaching supervisor, for consult. She also requests Dr. Dixon for GI. - Lab Interpretations Lab Results: PT 13.0 SECONDS (9.4-12.5) H 08/05/18 06:07 INR 1.15 08/05/18 06:07 APTT 37.9 Seconds (26.9-38.3) 08/05/18 06:07 Troponin I 0.02 ng/mL D 08/05/18 06:07 Total Bilirubin 0.4 mg/dL (0.2-1.3) 08/05/18 06:07 AST 26 U/L (14-36) 08/05/18 06:07 ALT 26 U/L (7-56) 08/05/18 06:07 Alkaline Phosphatase 127 U/L (38-126) H 08/05/18 06:07 Total Protein 7.4 g/dL (5.8-8.3) 08/05/18 06:07 Albumin 4.0 g/dL (3.0-4.8) 08/05/18 06:07 Globulin 3.4 gm/dL 08/05/18 06:07 Albumin/Globulin Ratio 1.2 (1.1-1.8) 08/05/18 06:07 Urine Color Yellow (YELLOW) 08/05/18 05:53 Urine Appearance Clear (CLEAR) 08/05/18 05:53 Urine pH 6.0 (4.7-8.0) 08/05/18 05:53 Ur Specific [place] 1.015 (1.005-1.035) 08/05/18 05:53 Urine Protein 30 mg/dL (<30 mg/dL) H 08/05/18 05:53 Urine Glucose (UA) 100 mg/dL (NEGATIVE) H 08/05/18 05:53 Urine Ketones Negative mg/dL (NEGATIVE) 08/05/18 05:53 Urine Blood Small (NEGATIVE) H 08/05/18 05:53 Urine Nitrate Negative (NEGATIVE) 08/05/18 05:53 Urine Bilirubin Negative (NEGATIVE) 08/05/18 05:53 Urine Urobilinogen 0.2 E.U./dL (<1 E.U./dL) 08/05/18 05:53 Ur Leukocyte Esterase Negative Eric/uL (NEGATIVE) 08/05/18 05:53 Urine RBC 5 - 10 /hpf (0-2) H 08/05/18 05:53 Urine WBC 0 - 2 /hpf (0-6) 08/05/18 05:53 Ur Epithelial Cells 6 - 8 /hpf (0-5) H 08/05/18 05:53 Amorphous Sediment Few /hpf (NONE) 08/05/18 05:53 Urine Bacteria Many /hpf (NONE) 08/05/18 05:53 - RAD Interpretation Radiology Orders: 08/05/18 05:53 CHEST PORTABLE [RAD] Stat 08/05/18 06:55 ABD & PELVIS W/O PO OR IV CONT [CT] Stat - Medication Orders Current Medication Orders: Discontinued Medications Al Hydrox/Mg Hydrox/Simethicone (Maalox Plus 30 Ml) 30 ml PO STAT STA Stop: 08/05/18 06:42 Last Admin: 08/05/18 07:11 Dose: 30 ml Belladonna/Phenobarbital ( Elixir) 5 ml PO STAT STA Stop: 08/05/18 06:42 Last Admin: 08/05/18 07:11 Dose: 5 ml Famotidine (Pepcid) 20 mg IVP STAT STA Stop: 08/05/18 06:42 Last Admin: 08/05/18 06:57 Dose: 20 mg IVP Administration Document 08/05/18 06:57 IT (Rec: 08/05/18 06:57 IT [facility] [id number]) Charges for Administration # of IVP Administrations 1 Sodium Chloride (Sodium Chloride 0.9%) 1,000 mls @ 999 mls/hr IV .Q1H1M STA Stop: 08/05/18 07:54 Last Admin: 08/05/18 07:00 Dose: 999 mls/hr eMAR Start Stop Document 08/05/18 07:00 IT (Rec: 08/05/18 07:00 IT [id number]) Intravenous Solution Start Date 08/05/18 Start Time 07:00 Metoclopramide HCl (Reglan) 10 mg IVP STAT STA Stop: 08/05/18 06:05 Last Admin: 08/05/18 06:18 Dose: 10 mg IVP Administration Document 08/05/18 06:18 IT (Rec: 08/05/18 06:18 IT [facility] [id number]) Charges for Administration # of IVP Administrations 1 Nitroglycerin (Nitrostat Sl Tab) 0.4 mg SL STAT STA Stop: 08/05/18 06:05 Last Admin: 08/05/18 06:18 Dose: 0.4 mg - Scribe Statement The provider has reviewed the documentation as recorded by the Marcy Michael All medical record entries made by the Marcy were at my direction and personally dictated by me. I have reviewed the chart and agree that the record accurately reflects my personal performance of the history, physical exam, medical decision making, and the department course for this patient. I have also personally directed, reviewed, and agree with the discharge instructions and disposition. Disposition/Present on Arrival - Present on Arrival Any Indicators Present on Arrival: No History of DVT/PE: No History of Uncontrolled Diabetes: No Urinary Catheter: No History of Decub. Ulcer: No History Surgical Site Infection Following: None - Disposition Have Diagnosis and Disposition been Completed?: Yes Diagnosis: Chest pain, Abdominal discomfort Disposition: HOSPITALIZED Disposition Time: 09:59 Patient Plan: Admission, Telemetry Condition: STABLE
[2018-08-05] MEDS: Cholecalciferol 1,000 INTLU TAB PO SCH (13:18)
[2018-08-05] MEDS: INSULIN ASPART 9 UNIT SQ SCH (13:22)
[2018-08-05] MEDS ORDERED: Pneumococcal 23-Valent Vaccine IM ONE (13:31)
--- NOTE | 2018-08-05 16:37 | CP.PCM.CON ---
History of Present Illness - History of Present Illness History of Present Illness: Xena Moncada, PGY2, GI Consult Note for Dr Jo: Reason for consult: abdominal pain CC: left sided cp This is a 58 year old female with PMH CAD with stents (last one placed in 2015), COPD, hypertension, Diabetes, and HLD, is here for left sided chest pain that started last night around 1:30 AM. Patient reports it as tightness, radiation to left upper scapula with some nausea, denies vomiting. Reports lower abdominal pain and mild RUQ pain occasionally. Patient states that she recently had a cardiac cath with Dr Vargas a month ago at [place], no additional stents placed; patient was started on ranolazine. Patient, on the other hand, reports an ongoing 10 year history of constipation. Ten years ago, patient reports that she used to have daily BMs. However, she now has BMs twice in a week only, with the help of Miralax and PO dulcolax. Patient reports brown to green, hard stools. Patient states that she felt better when she was on lactulose during a hospital stay with daily BMs. Patient denies weight loss, recent changes in stool character, melena, hematochezia, dyspepsia. In ED, patient was afebrile with stable vitals. Labs significant for BUN/Cr 33/1.4. trop 0.02. CT abd pelvis showed moderate constipation. Patient given Malox, Pepcid 20 iv, reglan 10 iv, nitroglycerin 0.4 mg sl, 1 L NS bolus. Currently, patient verbalized relief in her chest pain. She states that her abdominal symptoms are currently better since she just had a moderate amount, brown, hard BM yesterday. Her last EGD was on 04/[address] Daniel: gastritis. small hiatus hernia. H pylori positive. completed treatment, re-testing was negative. Last colonoscopy was on 04/2017: one 6 mm polyp in cecum, tubular adenoma on pathology. non-bleeding internal hemorrhoids. good bowel prep. 12 point ROS obtained and negative, except as per HPI. PMH: CAD x stents (last one in 2015), COPD, hypertension, Diabetes, and High cholesterol PSH: CABG (2012), tubal ligation, C section x1 NKA FH: denies colon cancer SH: Prior heavy smoker 1 ppd x 40 years, quit Mar 2017. Social ETOH use. Denies recreational, IV drug use. Has been on disability due to her heart conditions. Lives with her . Home meds: plavix 75 daily, asa 81, metoprolol 12.5 mg, lipitor 80 mg, vitamin D 1000 U, aldactone 12.5 mg, lasix 40 mg, allopurinol 100 mg, insulin aspart, ranolazine 500 bid PMD: [place] Review of Systems - Review of Systems All systems: reviewed and no additional remarkable complaints except Review of Systems: as per HPI Past Patient History - Infectious Disease Hx of Infectious Diseases: None - Tetanus Immunizations Tetanus Immunization: Unknown - Past Medical History & Family History Past Medical History?: Yes - Past Social History Smoking Status: Former Smoker - CARDIAC Hx Cardiac Disorders: Yes (CABAG X 3,MV PROLAPSE.) Hx Cardia Arrhythmia: Yes Hx Congestive Heart Failure: Yes (04-08-13) Hx Hypercholesterolemia: Yes Hx Hypertension: Yes Hx Mitral Valve Prolapse: Yes Hx Pacemaker: Yes (ICD) Hx Peripheral Edema: Yes Hx Peripheral Vascular Disease: Yes - PULMONARY Hx Respiratory Disorders: Yes (USED TO SMOKE CIGARETTES PPD QUIT) Hx Asthma: Yes Hx Bronchitis: Yes Hx Chronic Obstructive Pulmonary Disease (COPD): Yes Hx Pneumonia: Yes - NEUROLOGICAL Hx Neurological Disorder: Yes Hx Dizziness: Yes - HEENT Hx HEENT Problems: No - RENAL Hx Chronic Kidney Disease: Yes Hx Pyelonephritis: Yes - ENDOCRINE/METABOLIC Hx Endocrine Disorders: Yes Hx Diabetes Mellitus Type 2: Yes - HEMATOLOGICAL/ONCOLOGICAL Hx Blood Disorders: Yes Hx Anemia: Yes - INTEGUMENTARY Hx Dermatological Problems: Yes (H/O STERNOTOMY WOUND INFECTION) - MUSCULOSKELETAL/RHEUMATOLOGICAL Hx Musculoskeletal Disorders: Yes Hx Falls: No Hx Fractures: Yes (left arm) Hx Gout: Yes - GASTROINTESTINAL Hx Gastrointestinal Disorders: Yes (CONSTIPATION,DYSPEPSIA,GASTRITIS,) Hx Diverticulitis: Yes - GENITOURINARY/GYNECOLOGICAL Hx Genitourinary Disorders: No - PSYCHIATRIC Hx Psychophysiologic Disorder: Yes Hx Anxiety: Yes Hx Depression: Yes Hx Substance Use: No - SURGICAL HISTORY Hx Surgeries: Yes (TUBAL LIGATION,C/S X 1,CABG X 3.) Hx Coronary Stent: Yes (3) - ANESTHESIA Hx Anesthesia: Yes Hx Anesthesia Reactions: No Hx Malignant Hyperthermia: No Meds Allergies/Adverse Reactions: Allergies Allergy/AdvReac Type Severity Reaction Status Date / Time No Known Allergies Allergy Verified 08/05/18 11:45 - Medications Medications: Current Medications Allopurinol (Zyloprim) 100 mg PO DAILY [facility] Last Admin: 08/05/18 13:19 Dose: 100 mg Aspirin (Ecotrin) 81 mg PO DAILY [facility] Last Admin: 08/05/18 13:21 Dose: 81 mg Atorvastatin Calcium (Lipitor) 80 mg PO HS [facility] Cholecalciferol (Vitamin D) 1,000 intlu PO DAILY [facility] Last Admin: 08/05/18 13:18 Dose: 1,000 intlu Clopidogrel Bisulfate (Plavix) 75 mg PO DAILY [facility] Last Admin: 08/05/18 13:20 Dose: 75 mg Famotidine (Pepcid) 20 mg PO HS [facility] Furosemide (Lasix) 40 mg PO DAILY [facility] Last Admin: 08/05/18 13:20 Dose: 40 mg Insulin Human Regular (Humulin R Low) 0 units SC [facility]; Protocol Metoprolol Tartrate (Lopressor) 12.5 mg PO DAILY [facility] Non-Formulary Medication (Insulin Aspart (Niacinamide) [Fiasp 100 Unit/Ml Vial]) 9 unit SQ DAILY [facility] Last Admin: 08/05/18 13:22 Dose: Not Given Non-Formulary Medication (Insulin Glargine,Hum.Rec.Anlog [Marva Hartman]) 90 units SQ DAILY [facility] Non-Formulary Medication (Ranolazine [Ranexa]) 500 mg PO BID [facility] Ramipril (Altace) 1.25 mg PO DAILY [facility] Last Admin: 08/05/18 13:18 Dose: 1.25 mg Spironolactone (Aldactone) 12.5 mg PO DAILY [facility] Last Admin: 08/05/18 13:19 Dose: 12.5 mg Physical Exam - Constitutional Appears: Non-toxic, No Acute Distress - Head Exam Head Exam: ATRAUMATIC, NORMOCEPHALIC - Eye Exam Eye Exam: EOMI, PERRL. absent: Conjunctival injection, Nystagmus, Scleral icterus Pupil Exam: NORMAL ACCOMODATION, PERRL. absent: Irregular, Miosis, Unequal - ENT Exam ENT Exam: Mucous Membranes Moist - Neck Exam Neck exam: Positive for: Full Rom - Respiratory Exam Respiratory Exam: Clear to Auscultation Bilateral, NORMAL BREATHING PATTERN. absent: Accessory Muscle Use, Chest Wall Tenderness, Rhonchi, Wheezes, Stridor - Cardiovascular Exam Cardiovascular Exam: RRR, +S1, +S2. absent: Systolic Murmur - GI/Abdominal Exam GI & Abdominal Exam: Normal Bowel Sounds, Soft, Tenderness (tender to deep palpation in RUQ and lower abd area. negative Carrillo's sign). absent: Distended, Firm, Guarding, Rebound, Rigid - Extremities Exam Extremities exam: Positive for: normal inspection. Negative for: calf tenderness, pedal edema - Back Exam Back exam: NORMAL INSPECTION - Neurological Exam Neurological exam: Alert, Oriented x3 - Psychiatric Exam Psychiatric exam: Normal Affect, Normal Mood - Skin Skin Exam: Dry, Normal Color, Warm Results - Vital Signs Recent Vital Signs: Last Vital Signs Temp 97.3 F L 08/05/18 12:00 Pulse 16 L 08/05/18 12:53 Resp 16 08/05/18 12:53 BP 145/67 08/05/18 13:20 Pulse Ox 95 08/05/18 11:00 - Labs Result Diagrams: 08/05/18 06:07 08/05/18 06:07 Labs: Laboratory Results - last 24 hr 08/05/18 08/05/18 08/05/18 05:53 06:07 06:07 WBC 12.0 H RBC 4.40 Hgb 12.5 Hct 38.0 MCV 86.4 MCH 28.4 MCHC 32.9 RDW 13.9 Plt Count 305 MPV 10.4 Neut % (Auto) 59.3 Lymph % (Auto) 29.8 Delta % (Auto) 6.4 H Eos % (Auto) 4.1 Baso % (Auto) 0.4 Lymph # (Auto) 3.6 H Delta # (Auto) 0.8 H Eos # (Auto) 0.5 Baso # (Auto) 0.05 Absolute Neuts (auto) 7.14 H PT 13.0 H INR 1.15 APTT 37.9 Sodium Potassium Chloride Carbon Dioxide Anion Gap BUN Creatinine Est GFR ( Amer) Est GFR (Non-Af Amer) POC Glucose (mg/dL) Random Glucose Calcium Magnesium Total Bilirubin AST ALT Alkaline Phosphatase Troponin I Total Protein Albumin Globulin Albumin/Globulin Ratio Urine Color Yellow Urine Appearance Clear Urine pH 6.0 Ur Specific [place] 1.015 Urine Protein 30 H Urine Glucose (UA) 100 H Urine Ketones Negative Urine Blood Small H Urine Nitrate Negative Urine Bilirubin Negative Urine Urobilinogen 0.2 Ur Leukocyte Esterase Negative Urine RBC 5 - 10 H Urine WBC 0 - 2 Ur Epithelial Cells 6 - 8 H Amorphous Sediment Few Urine Bacteria Many 08/05/18 08/05/18 06:07 10:13 WBC RBC Hgb Hct MCV MCH MCHC RDW Plt Count MPV Neut % (Auto) Lymph % (Auto) Delta % (Auto) Eos % (Auto) Baso % (Auto) Lymph # (Auto) Delta # (Auto) Eos # (Auto) Baso # (Auto) Absolute Neuts (auto) PT INR APTT Sodium 138 Potassium 4.9 Chloride 102 Carbon Dioxide 29 Anion Gap 12 BUN 33 H Creatinine 1.4 H Est GFR ( Amer) 47 Est GFR (Non-Af Amer) 39 POC Glucose (mg/dL) 234 H Random Glucose 245 H Calcium 9.5 Magnesium 1.8 Total Bilirubin 0.4 AST 26 ALT 26 Alkaline Phosphatase 127 H Troponin I 0.02 D Total Protein 7.4 Albumin 4.0 Globulin 3.4 Albumin/Globulin Ratio 1.2 Urine Color Urine Appearance Urine pH Ur Specific [place] Urine Protein Urine Glucose (UA) Urine Ketones Urine Blood Urine Nitrate Urine Bilirubin Urine Urobilinogen Ur Leukocyte Esterase Urine RBC Urine WBC Ur Epithelial Cells Amorphous Sediment Urine Bacteria Assessment & Plan - Assessment and Plan (Free Text) Assessment: # Lower and RUQ abdominal pain 2/2 chronic constipation in setting of gastroparesis and uncontrolled DM # Left sided chest pain # CAD with stents # COPD # DM # HLD - CT abd pelvis showed moderate constipation. - Abd US 03/2018 reviewed, no gallstones. - Recommend good bowel regimen, will start miralax bid marbella. - if no significant BM, will give Golytely 2 L tomorrow (once cleared by Cardio). - continue with pepcid - continue with diabetic, HHD, 6 small meals. Recommended to patient to increase fluid intake. - continue cardiac workup. appreciate cardiology recs. - Further recs per Dr Jo. Case seen and discussed with Dr Jo.
[2018-08-05] MEDS: Non Formulary Medication (Ranolazine [Ranexa] 500 MG) PO SCH (17:43)
[2018-08-05] MEDS: Insulin Reg-LOW-Coverage SC SCH ×2 (17:46→21:19)
[2018-08-05] MEDS ORDERED: Albuterol-Ipratrop 3 mg / 0.5 (3 ml) UD IH ONE (18:40)
[2018-08-05] MEDS ORDERED: POLYETHYLENE GLYCOL 3350 17 GM/Dose PACKET PO ONE (19:15)
[2018-08-05] MEDS ORDERED: POLYETHYLENE GLYCOL 3350 17 GM/Dose PACKET PO SCH (20:00)
--- NOTE | 2018-08-05 20:08 | CARD ---
APPROVED REPORT Date of service: 08/05/2018 EKG Measurement Heart [id number] <Conclusion> Sinus rhythm with fusion complexes Septal infarct, age undetermined Nonspecific intraventricular conduction delay Abnormal ECG
--- NOTE | 2018-08-05 20:21 | CON ---
DATE: 08/05/2018 LOCATION: The patient in room 271, bed 1. REASON FOR CONSULTATION: Chest discomfort and pounding of the heartbeat, she felt like numbness in the left chest. (Patient follows with [facility] is on Vacation This Week). HISTORY OF PRESENT ILLNESS: The patient is a 58-year-old female who is a known case of coronary artery disease, history goes back to year 1999 when she had acute NV, at that time she saw Dr. Stubbs and had stent insertion. Then in 2011, she was seen by Dr. Vargas for cardiac evaluation and in 2012, she had coronary artery bypass surgery at [facility] and same time, she has ring insertion for mitral regurgitation and also she says there was a hole in the heart, which was repaired, so most likely was ASD. Then, the patient had AICD inserted in 2014, then she had in 2016 [address] stent insertion by [address] Vargas at [facility]. Now, the patient states that she was lying in bed when she felt numbness in the left chest and she felt the heart was pounding, it was not racing fast, but she felt the heartbeat. She denies any sweating or any radiation of any discomfort in the arms or in the back, it was about an hour to one and a half hour lasted, so she came to emergency room and she was admitted. The patient states that this feeling in the chest at the present time was different then the feeling which she used to get when they have stent insertion and bypass surgery at that time, she used to get chest pressure and shortness of breath and diaphoresis. The patient denies any PND. She sleeps on one pillow. She denies any recent exertional chest pain or shortness of breath. Denies any dizziness or syncope. One week ago, she had cardiac catheterization at [facility] because she was admitted to [facility], the troponin was elevated, so she had catheterization as per the patient. The patient had one vessel blockage, but it has collateral, so no intervention was done, only cardiac catheterization was done and medical therapy was suggested. The patient known case of diabetes mellitus and there was questionable history of COPD also. The patient used to smoke three fourth of a pack until 04/06/2018 about four months ago. PAST MEDICAL HISTORY: As mentioned before, the patient is known case of diabetes mellitus and had coronary artery bypass surgery, mitral valve ring inserted for regurgitation and possible AICD repair, also had AICD insertion and she had multiple stents insertion in the past. PERSONAL HISTORY: She used to smoke three fourth of a pack until 03/2018. She has one for of a child. ALLERGIES: THE PATIENT DENIES ANY ALLERGIES. FAMILY HISTORY: Positive for diabetes mellitus and coronary artery disease. LIST OF HOME MEDICATIONS: The patient was on vitamin D 1000 international units one tablet daily, Zyloprim 100 mg daily, insulin aspart 9 units subcutaneously daily, insulin glargine 90 units subcutaneously daily, Ranexa 500 mg p.o. b.i.d., spironolactone 12.5 mg p.o. daily, ramipril 1.25 p.o. daily, metoprolol tartarate 12.5 mg p.o. daily, furosemide 40 daily, Plavix 75 daily, atorvastatin 80 mg daily, and aspirin 81 mg daily. REVIEW OF SYSTEMS: All the systems reviewed, positive mentioned in the history. PREVIOUS CARDIAC HISTORY: In year 1999, the patient had NV and had stent insertion by Dr. Stubbs. In 2011, she start seeing Dr. Vargas and in 2012 she had a cath and Dr. Vargas suggested to have coronary artery bypass surgery. She was transferred to [facility] where she had coronary artery bypass surgery as well as according to the patient, she had ring insertion for mitral regurgitation and they also found a hole in the heart, which was probably ASD and she had repair of that done. In 2014, she has AICD put in and 2016, she had again stent inserted by Dr. Vargas at [facility]. She was recently admitted on 07/24/2018 at [facility] and found to have troponin elevated and subsequently one week ago, she had again cardiac catheterization by Dr. Vargas at [facility] and she was found to have blockage in the one of the vessels, but she was told that she already has a collateral and she only need medical therapy, no other intervention was done. PHYSICAL EXAMINATION: VITAL SIGNS: Blood pressure 133/63, respirations 20, pulse 76, and the patient is afebrile. HEENT: Head is normocephalic. Eyes; pupils normal. Conjunctivae normal. NECK: JVP low. Carotids equal. THORAX: AP diameter normal. LUNGS: Clear. CARDIOVASCULAR: S1 and S2. ABDOMEN: Soft. No tenderness. No organomegaly. Bowel sounds normal. EXTREMITIES: No clubbing. No cyanosis. LABORATORY DATA: Hematology; WBC 12, hemoglobin 12.5, hematocrit 38, and platelet 305. Sodium 138, potassium 4.9, BUN 33, and creatinine 1.4. Calcium 9.5 and total bilirubin 0.4. AST 26, ALT 26, and alkaline phosphatase 127. Troponin 0.02. Total protein and albumin normal. Chest x-ray shows pacemaker leads; otherwise, lungs do not show any abnormality. EKG shows regular sinus rhythm, intraventricular conduction defect, old anteroseptal NV. DIAGNOSES: Atypical chest pain and palpitation. The patient has history of coronary artery disease, status post coronary artery bypass surgery, status post multiple stents insertion, status post automatic implantable cardioverter-defibrillator insertion, status post ring insertion for mitral regurgitation and possible atrial septal defect repair along with coronary artery bypass surgery in 2012, questionable history of chronic obstructive pulmonary disease and bronchitis. The patient ex-smoker, was stopped 03/2018. Insulin-dependent diabetes mellitus, recent catheterization as mentioned one week ago. PLAN: We will monitor the patient for arrhythmia and we will continue spironolactone 12.5 mg daily, ramipril 1.25 daily, aspirin 81 mg daily, insulin aspart 9 units subcutaneously daily, insulin glargine 90 units subcutaneously daily, furosemide 40 mg daily, atorvastatin 80 mg daily, metoprolol 12.5 mg p.o. daily, Pepcid 20 mg at bedside, Plavix 75 mg daily, ranolazine 500 mg p.o. b.i.d., cholecalciferol 1000 units p.o. daily, and Zyloprim 100 mg p.o. daily. Patient Follows with who is on Vacation This Week. I Confirmed this with his Office. Once the patient is discharged, she will follow with Dr. Vargas. Jordon Mark MD MTDD
[2018-08-06] MEDS ORDERED: Insulin Regular 1 UNITS/0.01 ML ML SC STA (02:32)
[2018-08-06 06:22] VITALS: O2SAT 96
[2018-08-06 07:15] LABS: MEAN CELL VOLUME 86.8 fl (80.0-105.0); MEAN CORPUSCULAR HEMOGLOBIN 27.7 pg (25.0-35.0); MEAN CORPUSCULAR HGB CONC 31.9 g/dl (31.0-37.0); MEAN PLATELET VOLUME 10.3 fl (7.0-11.0); RBC 4.33 10^6/uL (3.5-6.1); RED CELL DISTRIBUTION WIDTH 13.9 % (11.5-14.5); WHITE BLOOD COUNT 9.2 10^3/uL (4.5-11.0)
[2018-08-06 07:26] LABS: HDL CHOLESTEROL 50 mg/dL (29-60)
[2018-08-06 07:29] LABS: IRON 58 ug/dL (45-180)
[2018-08-06 07:34] LABS: B-TYPE NATRIURETIC PEPTIDE 592 pg/mL (0-450)
[2018-08-06 07:38] LABS: LDL CHOLESTEROL 62 mg/dL (0-129)
[2018-08-06 07:39] LABS: % IRON SATURATION 18 % (20-55); TOTAL IRON BINDING CAPACITY 329 ug/dL (265-497)
[2018-08-06 07:40] LABS: TROPONIN I 0.01 ng/mL
[2018-08-06] MEDS ORDERED: NuLYTELY (NACL/NAHCO3/KCL/PEG) 4L PO ONE (09:15)
--- NOTE | 2018-08-06 09:20 | CP.PCM.PN ---
<SilvanoMary - Last Filed: 08/06/18 09:16> Subjective - Date & Time of Evaluation Date of Evaluation: 08/06/18 Time of Evaluation: 09:16 - Subjective Subjective: Gastroenterology Fellow/PGY6 Progress Note Patient notes small hard stool last night. Improving abdominal discomfort. Tolerating heart healthy diet. A 12-point review of systems negative except for as above. Objective - Vital Signs/Intake and Output Vital Signs (last 24 hours): Temp Pulse Resp BP Pulse Ox 98.2 F 73 18 143/78 96 08/06/18 06:00 08/06/18 06:00 08/06/18 06:00 08/06/18 06:00 08/06/18 06:00 Intake and Output: 08/06/18 08/06/18 06:59 18:59 Intake Total 1440 Output Total 3 Balance 1437 - Medications Medications: Current Medications Allopurinol (Zyloprim) 100 mg PO DAILY [facility] Last Admin: 08/05/18 13:19 Dose: 100 mg Aspirin (Ecotrin) 81 mg PO DAILY [facility] Last Admin: 08/05/18 13:21 Dose: 81 mg Atorvastatin Calcium (Lipitor) 80 mg PO HS [facility] Last Admin: 08/05/18 21:00 Dose: 80 mg Cholecalciferol (Vitamin D) 1,000 intlu PO DAILY [facility] Last Admin: 08/05/18 13:18 Dose: 1,000 intlu Clopidogrel Bisulfate (Plavix) 75 mg PO DAILY [facility] Last Admin: 08/05/18 13:20 Dose: 75 mg Famotidine (Pepcid) 20 mg PO HS [facility] Last Admin: 08/05/18 21:00 Dose: 20 mg Furosemide (Lasix) 40 mg PO DAILY [facility] Last Admin: 08/05/18 13:20 Dose: 40 mg Insulin Human Regular (Humulin R Low) 0 units SC [facility]; Protocol Last Admin: 08/05/18 21:19 Dose: 3 units Metoprolol Tartrate (Lopressor) 12.5 mg PO DAILY [facility] Non-Formulary Medication (Insulin Aspart (Niacinamide) [Fiasp 100 Unit/Ml Vial]) 9 unit SQ DAILY [facility] Last Admin: 08/05/18 13:22 Dose: Not Given Non-Formulary Medication (Ranolazine [Ranexa]) 500 mg PO BID [facility] Last Admin: 08/05/18 17:43 Dose: Not Given Non-Formulary Medication (Insulin Glargine,Hum.Rec.Anlog [Marva Hartman]) 40 units SQ DAILY [facility] Polyethylene Glycol (Miralax) 17 gm PO BID [facility] Ramipril (Altace) 1.25 mg PO DAILY [facility] Last Admin: 08/05/18 13:18 Dose: 1.25 mg Spironolactone (Aldactone) 12.5 mg PO DAILY [facility] Last Admin: 08/05/18 13:19 Dose: 12.5 mg - Labs Labs: 08/06/18 07:00 08/05/18 06:07 PT 13.0 SECONDS (9.4-12.5) H 08/05/18 06:07 INR 1.15 08/05/18 06:07 APTT 37.9 Seconds (26.9-38.3) 08/05/18 06:07 - Constitutional Appears: Non-toxic, No Acute Distress - Head Exam Head Exam: ATRAUMATIC, NORMOCEPHALIC - Eye Exam Eye Exam: EOMI, PERRL. absent: Scleral icterus Pupil Exam: PERRL - ENT Exam ENT Exam: Mucous Membranes Moist, Normal Oropharynx - Neck Exam Neck Exam: Full ROM, Normal Inspection - Cardiovascular Exam Cardiovascular Exam: RRR, +S1, +S2. absent: Gallop, Rubs - GI/Abdominal Exam GI & Abdominal Exam: Soft, Tenderness, Normal Bowel Sounds. absent: Distended, Firm, Guarding, Rigid, Organomegaly, Rebound Additional comments: mild right abdominal discomfort to palpation - Extremities Exam Extremities Exam: Normal Inspection - Neurological Exam Neurological Exam: Alert, Awake - Psychiatric Exam Psychiatric exam: Normal Affect, Normal Mood - Skin Skin Exam: Dry, Intact, Normal Color, Warm Assessment and Plan - Assessment and Plan (Free Text) Assessment: 58 year old female with PMH CAD/CT s/p stents (last 2015)/CABG/AICD with Defbrillator/mitral valve ring 2/2 MR, HTN, Diabetes, and HLD presenting with left sided chest pain. Active treatment of abdominal pain 2/2 constipation and gastroparesis in setting of uncontrolled diabetes. Prior EGD/colonoscopy 04/2017 showed H. pylori positive gastritis s/p therapy and confirmed eradication, cecal 6mm tubular adenoma and internal hemorrhoids with good bowel prep. Plan: -small BM overnight with Miralax -ordered 2 Liters of Nulytely -improve glycemic control -tolerated diabetic diet, small frequent, low fat meals recommended -counselled on increased fiber and water intake -cardiology managing-atypical chest pain, cath one week ago- CAD- medical therapy -will follow clinical course <Neeru Jo V - Last Filed: 08/07/18 00:14> Objective - Vital Signs/Intake and Output Vital Signs (last 24 hours): Temp Pulse Resp BP Pulse Ox 97.8 F 66 20 136/79 96 08/06/18 12:00 08/06/18 12:00 08/06/18 12:00 08/06/18 12:00 08/06/18 06:00 Intake and Output: 08/06/18 08/07/18 18:59 06:59 Intake Total 0 Balance 0 - Labs Labs: 08/06/18 07:00 08/05/18 06:07 PT 13.0 SECONDS (9.4-12.5) H 08/05/18 06:07 INR 1.15 08/05/18 06:07 APTT 37.9 Seconds (26.9-38.3) 08/05/18 06:07 Attending/Attestation - Attestation I have personally seen and examined this patient.: Yes I have fully participated in the care of the patient.: Yes I have reviewed all pertinent clinical information, including history, physical exam and plan: Yes Notes (Text): p 08/07/18 00:13
[2018-08-06] MEDS ORDERED: POLYETHYLENE GLYCOL 3350 17 GM/Dose PACKET PO SCH (10:00)
[2018-08-06] MEDS ORDERED: INSULIN GLARGINE HUM REC ANLOG 40 UNIT SQ SCH (10:00)
[2018-08-06] MEDS ORDERED: INSULIN GLARGINE HUM REC ANLOG 90 UNIT SQ SCH (10:00)
[2018-08-06] MEDS: Cholecalciferol 1,000 INTLU TAB PO SCH (10:20)
[2018-08-06] MEDS: Non Formulary Medication (Ranolazine [Ranexa] 500 MG) PO SCH (10:21)
[2018-08-06] MEDS: INSULIN ASPART 9 UNIT SQ SCH (10:24)
--- NOTE | 2018-08-06 10:54 | CP.PCM.PN ---
Subjective - Date & Time of Evaluation Date of Evaluation: 08/06/18 Time of Evaluation: 06:45 - Subjective Subjective: Awake, alert, denies chest pain Reason for consultation and follow up: Cardiac evaluation of chest discomfort, history of coronary artery disease post CABG and Mitral valve repair, post stents, AICD Seen and examined by me and Dr. Hernandez Objective - Vital Signs/Intake and Output Vital Signs (last 24 hours): Temp Pulse Resp BP Pulse Ox 98.2 F 72 18 133/57 L 96 08/06/18 06:00 08/06/18 10:20 08/06/18 06:00 08/06/18 10:20 08/06/18 06:00 Intake and Output: 08/06/18 08/06/18 06:59 18:59 Intake Total 1440 Output Total 3 Balance 1437 - Medications Medications: Current Medications Allopurinol (Zyloprim) 100 mg PO DAILY [facility] Last Admin: 08/05/18 13:19 Dose: 100 mg Aspirin (Ecotrin) 81 mg PO DAILY [facility] Last Admin: 08/06/18 10:20 Dose: 81 mg Atorvastatin Calcium (Lipitor) 80 mg PO HS [facility] Last Admin: 08/05/18 21:00 Dose: 80 mg Cholecalciferol (Vitamin D) 1,000 intlu PO DAILY [facility] Last Admin: 08/06/18 10:20 Dose: 1,000 intlu Clopidogrel Bisulfate (Plavix) 75 mg PO DAILY [facility] Last Admin: 08/06/18 10:21 Dose: 75 mg Famotidine (Pepcid) 20 mg PO HS [facility] Last Admin: 08/05/18 21:00 Dose: 20 mg Furosemide (Lasix) 40 mg PO DAILY [facility] Last Admin: 08/06/18 10:20 Dose: 40 mg Insulin Human Regular (Humulin R Low) 0 units SC [facility]; Protocol Last Admin: 08/05/18 21:19 Dose: 3 units Metoprolol Tartrate (Lopressor) 12.5 mg PO DAILY [facility] Last Admin: 08/06/18 10:20 Dose: 12.5 mg Non-Formulary Medication (Insulin Aspart (Niacinamide) [Fiasp 100 Unit/Ml Vial]) 9 unit SQ DAILY [facility] Last Admin: 08/06/18 10:24 Dose: Not Given Non-Formulary Medication (Ranolazine [Ranexa]) 500 mg PO BID [facility] Last Admin: 08/06/18 10:21 Dose: Not Given Non-Formulary Medication (Insulin Glargine,Hum.Rec.Anlog [Nathanguillermotian Trinidadthaddeusmelvina]) 40 units SQ DAILY [facility] Last Admin: 08/06/18 10:23 Dose: 40 units Polyethylene Glycol (Miralax) 17 gm PO BID [facility] Last Admin: 08/06/18 10:12 Dose: 17 gm Ramipril (Altace) 1.25 mg PO DAILY [facility] Last Admin: 08/06/18 10:13 Dose: 1.25 mg Spironolactone (Aldactone) 12.5 mg PO DAILY [facility] Last Admin: 08/06/18 10:12 Dose: 12.5 mg - Labs Labs: 08/06/18 07:00 08/05/18 06:07 PT 13.0 SECONDS (9.4-12.5) H 08/05/18 06:07 INR 1.15 08/05/18 06:07 APTT 37.9 Seconds (26.9-38.3) 08/05/18 06:07 - Constitutional Appears: Non-toxic, No Acute Distress - Head Exam Head Exam: NORMAL INSPECTION, NORMOCEPHALIC - Eye Exam Eye Exam: Normal appearance Pupil Exam: NORMAL ACCOMODATION - ENT Exam ENT Exam: Mucous Membranes Moist, Normal Exam - Respiratory Exam Respiratory Exam: Clear to Ausculation Bilateral, NORMAL BREATHING PATTERN - Cardiovascular Exam Cardiovascular Exam: REGULAR RHYTHM, +S1, +S2 Additional comments: AICD - GI/Abdominal Exam GI & Abdominal Exam: Soft, Normal Bowel Sounds - Extremities Exam Extremities Exam: Full ROM, Normal Capillary Refill - Neurological Exam Neurological Exam: Alert, Awake, Oriented x3 - Psychiatric Exam Psychiatric exam: Normal Affect, Normal Mood - Skin Skin Exam: Dry, Normal Color, Warm Assessment and Plan - Assessment and Plan (Free Text) Assessment: A 58 year old female obese who came in to the ER due to chest discomfort and pounding heartbeat. History of coronary artery disease, post CABG (2012) and Mitral valve repair for mitral valve regurgitation, ASD repair, post multiple stents (last one 2015) AICD (2014), bronchitis, COPD, former smoker, diabetes,diverticulitis, constipation. She follows up with Dr. Vargas at [facility]. She claimed to have had cardiac catheterization a week ago with Dr. Vargas. Claimed to have on vessel occluded but with collaterals and unable to do stent due to small vessel. Medical treatment was recommended. Atypical chest pain and palpitations. Echo done on 07/25/18 showed LVEF 50-55%, transmitral doppler Grade II, PPM lead noted, left atrium moderately dilated, mild mitral valve regurgitation. No further cardiac work up at this time. She fo llow up with Dr. Vargas. GI workup. Plan: Denies chest pain No distress Complaining of constipation GI on consult Heart rate stable Blood pressure stable Will discontinue telemetry On Allupurinol 100 mg daily, ASA 81 mg daily, Lipitor 80 mg daily, Plavix 75 mg daily, Lasix 40 mg daily, Lopressor 12.5 mg Ramipril 1.25 mg daily, Aldactone 12.5 mg daily Continue current treatment Continue current medications No further cardiac work up at this time She will follow up with Dr. Vargas post discharge Glucose control Weight reduction Will follow up while at [facility] Plan and treatment discussed with Dr. Hernandez
[2018-08-06] MEDS: Insulin Reg-LOW-Coverage SC SCH ×2 (11:59→12:00)
[2018-08-06 12:47] VITALS: BP 136/79; PULSE 66; RESP 20; TEMP 97.8
[2018-08-06 12:47] LABS: FOLATE > 20.0 ng/mL
--- NOTE | 2018-08-06 15:56 | HP ---
DATE OF EXAM: 08/06/2018 CHIEF COMPLAINT: Chest pain, heart is pounding, numbness in the left upper extremity. HISTORY OF PRESENT ILLNESS: Trisha Anderson is 58 years old female with history of coronary artery disease, history of acute IA. Her colorist formulator is Dr. Vargas, he is on vacation. The patient had AICD inserted in 2014, then she had in 2017 again stent insertion by [address] Vargas at [facility]. The patient felt numbness in the left side of the chest and felt heart is pounding and racing fast. No sweating. No nausea, vomiting, diarrhea. Pain lasted for one to one and half hour. She came in the emergency room. Even from emergency room, we tried to call Dr. Vargas, he was not available, then we called Dr. Mark. He saw the patient and cleared the patient for discharge. Followup with Dr. Vargas and primary care physician. The patient has light constipation, seen by Dr. Jo. PAST MEDICAL HISTORY: As above. PERSONAL HISTORY: Smoking 3 to 4 of the pack until 03/2018. She has one for the of a child. ALLERGIES: THE PATIENT IS NOT ALLERGIC WITH ANY MEDICATION. FAMILY HISTORY: Positive for diabetes mellitus and coronary artery disease. HOME MEDICATIONS: List of medications seen by me. REVIEW OF SYSTEMS: The patient was seen and examined at the bedside, looking comfortable. No fever, no chills, no hematuria or hematochezia. No headache. No dizziness. No chest pain. No palpitation. and sitting on the bedside, also the patient is feeling better today, seen by the colorist formulator. PHYSICAL EXAMINATION VITAL SIGNS: Blood pressure 133/63, respiratory rate 20, pulse 76. The patient is afebrile. HEENT: Head; normocephalic, atraumatic. Eyes, PERRLA. Extraocular muscles intact. Conjunctivae clear. Nose patent. Mucous membranes moist. NECK: Supple. No carotid bruits. No JVD or thyromegaly. CHEST: Bilaterally symmetrical. HEART: S1 and S2 positive. LUNGS: Clear to auscultation. ABDOMEN: Soft. Bowel sounds present. No organomegaly. EXTREMITIES: No edema. No cyanosis. NEUROLOGIC: The patient is awake, alert, follows simple commands. LABORATORY DATA: White blood cells 12, hemoglobin 12.5, hematocrit 38, platelets 305. Sodium 138, potassium 4.9, BUN 33, creatinine 1.4. Troponin 0.02. ASSESSMENT AND PLAN: Trisha Anderson is 58 years old lady with history of myocardial infarction and stent insertion by Dr. Stubbs, had cardiac catheterization done by Dr. Vargas, have a coronary artery bypass surgery. She was transferred to [facility] where she had coronary artery bypass surgery as well as according to the patient, she had ring insertion for mitral regurgitation and they also found a hole in the heart, which was probably atrial septal defect and she had repair of that one done. The patient has AICD in 2017 and stent insertion in [facility]. Now, the patient came with chest pain, seen by the colorist formulator, history of constipation, ex-smoker. Cardiology monitored the arrhythmias. Continue spironolactone, ramipril, aspirin and insulin. Patricia Amaya MD MTDD
--- NOTE | 2018-08-06 23:55 | DS ---
HOSPITAL COURSE: I saw the patient only once. The patient came with chest pain, seen by the referral management liaison, and cleared for discharge. CAT scan of the abdomen is done showed no acute intraabdominal findings, moderate constipation. Dr. Jo advised laxative. The patient will go home today. Continue follow up with Dr. Jo, Sam Ayala, and primary care physician. We will follow up. For more details, see my history and physical of 08/06/2018. Patricia Amaya MD
== END 2018-08-06 14:29 | disposition home or self-care (01) ==
LOC: ED 05:43 → INTOOBSV 10:03 → ERH 10:03 → 2RSO 11:17
PROVIDERS: ADMIT Internal Medicine; ATTEND Internal Medicine
DX: R07.89 Other chest pain (principal); B96.81 Helicobacter pylori [H. pylori] as the cause of diseases classified elsewhere; E11.22 Type 2 diabetes mellitus with diabetic chronic kidney disease; E11.43 Type 2 diabetes mellitus with diabetic autonomic (poly)neuropathy; E11.51 Type 2 diabetes mellitus with diabetic peripheral angiopathy without gangrene; E11.65 Type 2 diabetes mellitus with hyperglycemia; E78.00 Pure hypercholesterolemia, unspecified; E66.9 Obesity, unspecified; E78.5 Hyperlipidemia, unspecified; I13.0 Hypertensive heart and chronic kidney disease with heart failure and stage 1 through stage 4 chronic kidney disease, or unspecified chronic kidney disease; I25.10 Atherosclerotic heart disease of native coronary artery without angina pectoris; I25.2 Old myocardial infarction; I34.0 Nonrheumatic mitral (valve) insufficiency; I34.1 Nonrheumatic mitral (valve) prolapse; I42.9 Cardiomyopathy, unspecified; I50.9 Heart failure, unspecified; J44.9 Chronic obstructive pulmonary disease, unspecified; K31.84 Gastroparesis; K59.09 Other constipation; K64.8 Other hemorrhoids; N18.9 Chronic kidney disease, unspecified; Q21.1 Atrial septal defect; Z79.02 Long term (current) use of antithrombotics/antiplatelets; Z79.4 Long term (current) use of insulin; Z79.82 Long term (current) use of aspirin; Z79.899 Other long term (current) drug therapy; Z87.01 Personal history of pneumonia (recurrent); Z87.891 Personal history of nicotine dependence; Z95.0 Presence of cardiac pacemaker; Z95.1 Presence of aortocoronary bypass graft; Z95.5 Presence of coronary angioplasty implant and graft; Z95.810 Presence of automatic (implantable) cardiac defibrillator; Z98.51 Tubal ligation status
CPT/HCPCS: 36415; 71045; 74176; 80053; 80061; 81001; 82550; 82607; 82746; 82948; 83036; 83540; 83550; 83615; 83735; 83880; 84443; 84484; 85025; 85027; 85610; 85730; 93005; 94640; 96374; 96375; 99283; G0378; J2765; J7030